=== PATIENT | male | born 1965 | race Caucasian/White ===

== ENCOUNTER 2020-02-25 11:44 | Day surgery (SDC) | payer OTHER, SELFPAY ==
[2020-02-19 14:24] VITALS: BMI 27.3
--- NOTE | 2020-02-20 09:13 | HO.ANESPROP2 ---
HPI - Anesthesia Eval Consult details Narrative: 54yo M for Colonoscopy [facility] Past Medical History Medical History Asthma Elevated cholesterol HTN (hypertension) Surgical History Surgical History History of inguinal hernia repair, bilateral History of Problems with Anesthesia: Unobtainable Social History Social History Smoking Status: Current every day smoker Packs Per Day: 0.75 Cigarettes Per Day: 15.0 Years Smoked: 43 Second Hand Smoke Exposure: No Meds Allergies Allergy/AdvReac Type Severity Reaction Status Date / Time No Known Allergies Allergy Verified 02/19/20 14:27 Home Medications Medication Instructions Recorded Confirmed Type albuterol sulfate 2 puff PO Q4H PRN 02/19/20 02/19/20 History aspirin [Aspirin Low Dose] 81 mg PO DAILY 02/19/20 02/19/20 History cyclobenzaprine 1 tab PO BID 02/19/20 02/19/20 History ergocalciferol (vitamin D2) 1,250 mcg PO QWEEK 02/19/20 02/19/20 History lisinopril 1 tab PO DAILY 02/19/20 02/19/20 History tramadol 50 mg PO Q6H PRN 02/19/20 02/19/20 History Exam Exam Date and Time: February 20, 2020 0913 Height,Weight and Vital Signs: Height 5 ft 8 in Weight 81.647 kg BMI: 27
--- NOTE | 2020-02-25 12:29 | HO.ANESPROP2 ---
[facility] Past Medical History Medical History Asthma Elevated cholesterol HTN (hypertension) Surgical History Surgical History History of inguinal hernia repair, bilateral Social History Social History Smoking Status: Current every day smoker Packs Per Day: 0.75 Cigarettes Per Day: 15.0 Years Smoked: 43 Smoked in Last 30 Days: Yes Patient Interested in Nicotine Replacement: No Patient Given Instructions on How to Stop Smoking: No Second Hand Smoke Exposure: No Use of substances other than those prescribed or required for medical reasons: No Have you been hit, kicked, punched, or otherwise hurt by someone within the past year? If so, by whom?: No Advance Directives: No Advance Directives Information Provided: No Meds Allergies Allergy/AdvReac Type Severity Reaction Status Date / Time No Known Allergies Allergy Verified 02/19/20 14:27 Home Medications Medication Instructions Recorded Confirmed Type albuterol sulfate 2 puff PO Q4H PRN 02/19/20 02/19/20 History aspirin [Aspirin Low Dose] 81 mg PO DAILY 02/19/20 02/19/20 History cyclobenzaprine 1 tab PO BID 02/19/20 02/19/20 History ergocalciferol (vitamin D2) 1,250 mcg PO QWEEK 02/19/20 02/19/20 History lisinopril 1 tab PO DAILY 02/19/20 02/19/20 History tramadol 50 mg PO Q6H PRN 02/19/20 02/19/20 History Exam Exam Date and Time: February 25, 2020 1229 Height,Weight and Vital Signs: Height 5 ft 8 in Weight 81.647 kg Airway Mallampati Class: II TM Dist: >3cm Neck ROM: Full Heart: RRR Lungs: CTA BL
[2020-02-25 12:31] VITALS: BP 179/97; PULSE 113; RESP 16; TEMP 36.5; O2SAT 99
--- NOTE | 2020-02-25 12:36 | P.CONAN_ITS ---
[facility] Past Medical History Medical History Asthma Elevated cholesterol HTN (hypertension) Surgical History Surgical History History of inguinal hernia repair, bilateral Social History Social History Smoking Status: Current every day smoker Packs Per Day: 0.75 Cigarettes Per Day: 15.0 Years Smoked: 43 Smoked in Last 30 Days: Yes Patient Interested in Nicotine Replacement: No Patient Given Instructions on How to Stop Smoking: No Second Hand Smoke Exposure: No Use of substances other than those prescribed or required for medical reasons: No Have you been hit, kicked, punched, or otherwise hurt by someone within the past year? If so, by whom?: No Advance Directives: No Advance Directives Information Provided: No Meds Allergies Allergy/AdvReac Type Severity Reaction Status Date / Time No Known Allergies Allergy Verified 02/19/20 14:27 Home Medications Medication Instructions Recorded Confirmed Type albuterol sulfate 2 puff PO Q4H PRN 02/19/20 02/19/20 History aspirin [Aspirin Low Dose] 81 mg PO DAILY 02/19/20 02/19/20 History cyclobenzaprine 1 tab PO BID 02/19/20 02/19/20 History ergocalciferol (vitamin D2) 1,250 mcg PO QWEEK 02/19/20 02/19/20 History lisinopril 1 tab PO DAILY 02/19/20 02/19/20 History tramadol 50 mg PO Q6H PRN 02/19/20 02/19/20 History Exam Exam Date and Time: February 25, 2020 1236 Height,Weight and Vital Signs: Height 5 ft 8 in Weight 81.647 kg Last Vital Signs Temp 97.7 F 02/25/20 12:31 Pulse 113 H 02/25/20 12:31 Resp 16 02/25/20 12:31 BP 179/97 H 02/25/20 12:31 Pulse Ox 99 02/25/20 12:31 Assessment and Plan Final Anesthetic Review ASA Class: II Final Preanesthetic Review: No Changes in Pt Med Stat, Meds/Allgs Chart Reviewed, Consent Obtained/Reviewed and Anes Risks/Benef Reviewed Patient Risk: Low Procedure Risk: Low Assessment/Block/Sedation in SS: Assess/Block/Sedation-SS Anesthetic Plan Anesthetic Plan: MAC: Disposition: Standard PACU
--- NOTE | 2020-02-25 12:38 | MHC.SHP ---
Pre-Procedural Eval Section B Chief Complaint: screening Details of Present Illness: colon screen Relevant Family History (Specify if Yes): No Relevant Social History: Tobacco Use Present Medications: see Short Stay Collaborative assessment Medical History: Significant History (asthma, HTN, myalgia, HTN) History of Previous Operations: Relevant previous surgery/procedure and date(s) (hernia repair) Allergies: Allergies Allergy/AdvReac Type Severity Reaction Status Date / Time No Known Allergies Allergy Verified 02/19/20 14:27 Review of Systems Sugical H&P ROS: Negative: Constitution, Cardiovascular, Respiratory, Neurological, Psychiatric, Hem-Onc, Allergic/Immunologic, Gastrointestinal, Genitourinary, Musculoskeletal, Integumentary, Endocrine and Eyes/Ears/Nose/Throat Exam Surgical H&P Exam: Normal: HEENT, Normal: Heart, Normal: Lungs, Normal: Extremities, Normal: Abdomen, Normal: Skin and Normal: Neurological Plan Diagnosis/Plan: Unchanged Patient has been examined and remains a candidate for the planned procedure
--- NOTE | 2020-02-25 12:40 | PM.OP ---
Brief Operative Note Date of procedure: 02/25/20 Pre-op diagnosis: colon screen Post-op diagnosis: same Procedure: Operative Information Procedure Description: Colonoscopy COLONOSCOPY Instrument: Olympus variable stiffness pediatric scope 190L Colonoscopy Monitoring: Vital signs and clinical assessment, continuous EKG monitoring, Pulse oximetry, Carbon Dioxide monitoring and blood pressure monitoring were done throughout the procedure. Colon withdrawal time was 15 minutes. Procedure: The patient was placed in the left lateral decubitis position and pre-procedure medications were administered. After a digital rectal examination of the ano-rectum, the video colonoscope was inserted into the rectum and advanced through the colon to the cecum/TI. The colonoscope was slowly withdrawn in a retrograde panoramic fashion and the colon mucosa was carefully examined including a retroflexed view of the rectum. Findings and interventions are described below. Procedure Difficulty: Findings: Terminal Ileum-normal Cecum:normal Ascending Colon: normal Transverse Colon -normal, 7-9 mm sessile polyp removed with biopsy forceps Descending Colon:normal, 7-9 mm sessile polyp removed with biopsy forceps Sigmoid Colon: normal, 7-9 mm sessile polyp removed with biopsy forceps, several diverticula noted Rectum: Retroflexion with moderate sized internal hemorrhoids, grade 1, some inflammation and granular tissue noted, bx taken Anorectum - normal Colon preparation: [place] Bowel Preparation Scale Right colon; 1 Transverse colon: 2 Left colon; 3 (0 = Unprepared colon segment with mucosa not seen due to solid stool that cannot be cleared. 1 = Portion of mucosa of the colon segment seen, but other areas of the colon segment not well seen due to staining, residual stool and/or opaque liquid. 2 = Minor amount of residual staining, small fragments of stool and/or opaque liquid, but mucosa of colon segment seen well. 3 = Entire mucosa of colon segment seen well with no residual staining, small fragments of stool or opaque liquid) Impression and Post Procedure Diagnosis: diverticulosis internal hemerrhoids polyps Plan: High fiber diet leaflet Avoid straining at stool, epsom salts and sitz bath, anusol supps or cream prn Repeat Colonoscopy in 2 years due to prep or earlier if clinically indicated, review colon prep details next time Above findings were reviewed with the patient and relevant handouts were provided if indicated. Surgeon: Martha Ann MD Anesthesia: MAC Condition: stable Disposition: same day
[2020-02-25] MEDS: Lactated Ringers 1,000 ML 100 ML IVCONT (13:03)
[2020-02-25 13:40] VITALS: BP 110/69; PULSE 91; RESP 16; TEMP 36.4; O2SAT 96
[2020-02-25 13:55] VITALS: BP 013/69; PULSE 81; RESP 16; O2SAT 95
[2020-02-25 14:10] VITALS: BP 123/79; PULSE 77; RESP 16; O2SAT 98
--- NOTE | 2020-02-25 14:55 | HO.POSTANES ---
Post Anesthesia Evaluation Post Anesthesia Evaluation Vital Signs: Vital Signs Temp Pulse Resp BP Pulse Ox 02/25/20 14:10 77 16 123/79 98 02/25/20 13:55 81 16 013/69 95 02/25/20 13:40 97.5 F 91 16 110/69 96 02/25/20 12:31 97.7 F 113 H 16 179/97 H 99 Anesthesia: Monitored Mental Status: Awake Pain Control: Satisfactory Nausea/Vomiting: None Hydration: Adequate Anesthesia-Related Issues: No Anes. Related Issues
--- NOTE | 2020-02-26 08:26 | PC.NURSE ---
Pt called on 02-26-2020 at 0830 for post op call. Pt reports pain in groin that has not subsided since procedure . Pt referred to
== END 2020-02-25 14:41 | disposition home or self-care (01) ==
PROVIDERS: PCP Physician Assistant; Visit Provider Internal Medicine Gastroenterology
PROC: 0DJD8ZZ Inspection of Lower Intestinal Tract, Via Natural or Artificial Opening Endoscopic (ICD-10-PCS; CPT 45378; principal; 2020-02-25 10:50)
DX: Z12.11 Encounter for screening for malignant neoplasm of colon (principal); D12.3 Benign neoplasm of transverse colon; D12.4 Benign neoplasm of descending colon; D12.5 Benign neoplasm of sigmoid colon; K57.30 Diverticulosis of large intestine without perforation or abscess without bleeding; K64.0 First degree hemorrhoids; I10 Essential (primary) hypertension; J45.909 Unspecified asthma, uncomplicated; M79.10 Myalgia, unspecified site; E78.00 Pure hypercholesterolemia, unspecified; E55.9 Vitamin D deficiency, unspecified; R97.20 Elevated prostate specific antigen [PSA]; F17.210 Nicotine dependence, cigarettes, uncomplicated; Z79.82 Long term (current) use of aspirin; Z79.899 Other long term (current) drug therapy
CPT/HCPCS: 45380; 88305

== ENCOUNTER 2020-03-02 17:47 | Outpatient (REF) | payer OTHER, SELFPAY ==
[2020-03-02 18:29] LABS: Glucose Urine UA NEG (NEG); Leukocyte Esterase Urine NEG (NEG); Nitrite Urine NEG (NEG); Specific Gravity - Urine 1.025 (1.005-1.025); Urine Blood NEG (NEG); Urine Ketones NEG (NEG); Urine Protein NEG (NEG-TRACE)
[2020-03-02 18:31] LABS: Appearance Urine CLEAR; Color Urine YELLOW
[2020-03-02 20:31] LABS: Prostate Specific Antigen 4.61 ng/mL (<0.05-4.0)
== END 2020-03-02 17:48 | disposition home or self-care (01) ==
LOC: HO.LAB 17:47
PROVIDERS: PCP Physician Assistant; Visit Provider Internal Medicine Gastroenterology
DX: R30.0 Dysuria (principal)
CPT/HCPCS: 81003; 84153; 87086; 87491; 87591

== ENCOUNTER → 2020-03-05 08:52 | Outpatient (BNVA) | payer OTHER, SELFPAY | PROVIDERS: PCP Internal Medicine; Referring Provider Internal Medicine; Visit Provider Internal Medicine Gastroenterology | DX: Z76.89 Persons encountering health services in other specified circumstances (principal) ==

== ENCOUNTER → 2020-04-23 09:13 | Outpatient (BNVA) | payer OTHER, SELFPAY | PROVIDERS: PCP Internal Medicine; Referring Provider Internal Medicine; Visit Provider Internal Medicine Gastroenterology | DX: Z76.89 Persons encountering health services in other specified circumstances (principal) ==

== ENCOUNTER → 2020-08-23 08:43 | Outpatient (BNVA) | payer OTHER, SELFPAY | PROVIDERS: PCP Internal Medicine; Visit Provider Internal Medicine Gastroenterology ==

== ENCOUNTER → 2020-11-02 13:01 | Outpatient (BNVA) | payer OTHER, SELFPAY | PROVIDERS: PCP Internal Medicine; Visit Provider Urology ==

== ENCOUNTER 2020-12-01 16:10 | Outpatient (REF) | payer OTHER, SELFPAY ==
--- NOTE | ~2020-12-01 | US_ITS ---
EXAMINATION: US EXTREMITY NONVASCULAR CLINICAL INFORMATION: Localized swelling, mass, lump. Medial knee palpable area following repetitive trauma. COMPARISON: None TECHNIQUE: Mora-scale, Doppler, and cine images were obtained in the region of the patient's findings. FINDINGS: Within the subcutaneous tissues overlying the medial knee there is a slightly lobulated, heterogeneous area without increased Doppler detectable vascular flow. Given the reported history of prior repetitive trauma, findings could indicate an evolving hematoma. No additional abnormal soft tissue mass or fluid collection. US/US extremity nonvascular kenny IMPRESSION: Heterogeneous subcutaneous fluid collection overlying the medial knee without inflammatory change. Given the history of repetitive trauma, findings could indicate an evolving hematoma. Alternatively, findings could indicate a prominent varicosity in the appropriate clinical setting.
== END 2020-12-01 16:11 | disposition home or self-care (01) ==
LOC: HO.US 16:10
PROVIDERS: Visit Provider Nurse Practitioner Family
DX: R22.40 Localized swelling, mass and lump, unspecified lower limb (principal)
CPT/HCPCS: 76882

== ENCOUNTER → 2020-12-17 16:28 | Outpatient (BNVA) | payer OTHER, SELFPAY | PROVIDERS: PCP Internal Medicine; Visit Provider Urology ==

== ENCOUNTER 2020-12-20 16:20 | Outpatient (REF) | payer OTHER, SELFPAY ==
--- NOTE | ~2020-12-20 | XR_ITS ---
EXAMINATION: XR HIP, RIGHT CLINICAL INFORMATION: Right hip trochanteric bursitis. COMPARISON: Bilateral hips and AP pelvis 01/20/2020. TECHNIQUE: Two views of the right hip. FINDINGS: The right hip joint space is maintained. No bony erosive changes, acute fracture or dislocation seen. There is a small calcification superior to the greater trochanter likely trochanteric bursitis. The calcification has slightly increased in size since 01/20/2020. The soft tissues are normal. XR/XR hip RT min 2V IMPRESSION: Right hip greater trochanteric bursitis. No acute fracture or dislocation seen.
== END 2020-12-20 16:21 | disposition home or self-care (01) ==
LOC: HO.XRAY 16:20
PROVIDERS: PCP Internal Medicine; Visit Provider Internal Medicine
DX: M70.61 Trochanteric bursitis, right hip (principal)
CPT/HCPCS: 73502

== ENCOUNTER 2021-05-26 08:11 | Outpatient (REF) | payer OTHER, SELFPAY ==
[2021-05-26 11:27] LABS: Binax Internal Control QC Valid; Binax Now Covid-19 Ag Negative (Negative)
== END 2021-05-26 08:12 | disposition home or self-care (01) ==
LOC: HO.HMGCLDS 08:11
PROVIDERS: Visit Provider Internal Medicine
DX: Z20.822 Contact with and (suspected) exposure to COVID-19 (principal)
CPT/HCPCS: 36415; C9803

== ENCOUNTER → 2021-06-24 13:16 | Outpatient (BNVA) | payer OTHER, SELFPAY | PROVIDERS: PCP Internal Medicine; Visit Provider Urology ==

== ENCOUNTER 2021-08-05 09:17 | Outpatient (AMB) | payer OTHER, SELFPAY ==
--- NOTE | 2021-08-05 09:31 | MHC.OFFVIS ---
Intake Intake Visit Reasons: 6 week follow up PVR Intake Note: Patient is present for pvr follow up Experimental Physicist Required: No Accompanied by: Self / Same As Patient Allergies tamsulosin Allergy (Verified 05/17/23 11:02) Rash HPI HPI Comments History of Present Illness Details Garrison is a pleasant male. He is a patient of Dr. Elaine. He is seen for the following urologic issues. - prostatitis - LUTS PVR improved Continue alfuzosin Prostatitis Prior colonoscopy which appeared to trigger significant pelvic symptoms November 2020 Primarily with frequency and urge Pelvic discomfort On initial exam has boggy prostate consistent with prostatitis Treatment with combination therapy PFSH Medical History Asthma Bleeding hemorrhoids Dyspnea on exertion Elevated cholesterol History of diverticulitis HTN (hypertension) Impaired glucose tolerance Nicotine dependence, cigarettes, uncomplicated Tubular adenoma of colon (~2019) Surgical History History of colonoscopy History of inguinal hernia repair, bilateral History of prostate biopsy Family History (Updated 05/17/23 @ 12:03 by Kandis Elaine MD) Father No problems noted. Mother History of high blood pressure Hx of diabetes mellitus Diabetes Child No Financial Resp Substance use disorder Maternal Grandfather Heart attack Maternal Grandmother Breast cancer in situ Social History (Updated 05/17/23 @ 12:03 by Kandis Elaine MD) Housing: House Are you a primary health care / medical job titles to a significant other at home: No Do you presently have visiting nurse or other home services: No Alcohol intake: never Patient Tobacco Use Status: Current everyday Tobacco user Tobacco use type: Cigarette Cigarettes Per Day: 15 Years Smoked: 40+, 1/3 pack (04/2023) e-Cigarette/Vaping Use: Never Used Second Hand Smoke Exposure: No service: No Current occupational status: employed Cognitive needs: No Hearing needs: No Vision needs: No Review of Systems Const Denies chills and Denies fever(s) Card Reports no additional complaints and Denies syncope Resp Denies cough GI Denies abdominal pain and Denies heartburn Reports as per HPI and Denies change in libido Neuro Denies syncope Psych Denies change in libido Endo Denies change in libido Physical Exam Const General: cooperative, healthy appearing, comfortable and no acute distress Orientation/consciousness: patient oriented x3 HENMT Face and sinus: Yes normal facial exam Mouth: moist mucous membranes Neck Neck: Yes normal visual inspection, Yes full ROM and Yes trachea midline Chest Chest palpation & inspection: normal inspection of the chest Resp Effort & Inspection: normal respiratory effort, able to speak in complete sentences and no respiratory distress GI Inspection: Yes normal to inspection Back/Spine/Pelvis Cervical Spine: normal cervical lordosis Thoracic/Lumbar Spine: thoracic and lumbar spine normal to inspection Skin General skin exam: no rashes or lesions noted Neuro General: patient oriented x3, gait normal, tone normal and moves all extremities Extrem General: Yes normal to inspection and Yes capillary refill normal Office Procedures Post Void Residual Post Residual Void Post Void Residual (PVR): 300 [id number] Void Residual by ultrasound Results AMB Urinalysis, Automated UA Leukoctes 15 Deisy/uL Last Edit by Seb Adorno on 08/05/21 10:15 UA Nitrite Negative Last Edit by Seb Adorno on 08/05/21 10:15 UA Urobilinogen 0.2 mg/dL Last Edit by Seb Adorno on 08/05/21 10:15 UA Protein 0 mg/dL Last Edit by Seb Adorno on 08/05/21 10:15 UA pH 6.0 Last Edit by Seb Adorno on 08/05/21 10:15 UA Blood 0 Robert/uL Last Edit by Seb Adorno on 08/05/21 10:15 UA Specific [place] 1.010 Last Edit by Seb Adorno on 08/05/21 10:15 UA Ketone Negative Last Edit by Seb Adorno on 08/05/21 10:15 UA Bilirubin 0 mg/dL Last Edit by Seb Adorno on 08/05/21 10:15 UA Glucose 250 mg/dL Last Edit by Seb Adorno on 08/05/21 10:15 Results Reviewed Results Reviewed: Laboratory Last Values Urine pH (Auto) 6.0 08/05/21 10:10 Specific [place] (Auto) 1.010 08/05/21 10:10 Urine Protein (Auto) 0 mg/dL 08/05/21 10:10 Glucose (UA)(Auto) 250 mg/dL 08/05/21 10:10 Urine Ketones (Auto) Negative 08/05/21 10:10 Urine Blood (Auto) 0 Robert/uL 08/05/21 10:10 Urine Nitrite (Auto) Negative 08/05/21 10:10 Urine Bilirubin (Auto) 0 mg/dL 08/05/21 10:10 Urine Urobilinogen (Auto) 0.2 mg/dL 08/05/21 10:10 Leukocyte Esterase (Auto) 15 Deisy/uL 08/05/21 10:10 Assessment & Plan Assessment & Plan (1) Bladder outlet obstruction: Code(s): N32.0 - Bladder-neck obstruction (2) Prostatitis: Comment: May 2022transrectal ultrasound-guided prostate biopsy Dr. Boo-NORMAL Code(s): N41.9 - Inflammatory disease of prostate, unspecified Plan Six-month follow-up Orders: Orders AMB Post Void Residual by ultrasound 08/05/21 N32.0 - Bladder-neck obstruction AMB Urinalysis Automated 08/05/21 Z13.9 - Encounter for screening, unspecified Medications: New finasteride 5 mg PO DAILY 90 tabs 1RF 90 days N32.0 - Bladder-neck obstruction, N40.1 - Benign prostatic hyperplasia with lower urinary tract symptoms, N13.8 - Other obstructive and reflux uropathy, R33.9 - Retention of urine, unspecified Discontinued alfuzosin ER Take before bedtime Discontinued Reason: Doctor's Order 10 mg PO .nightly 30 days 30 tabs 1RF N32.0 - Bladder-neck obstruction, N40.1 - Benign prostatic hyperplasia with lower urinary tract symptoms, R33.9 - Retention of urine, unspecified, R35.1 - Nocturia Patient Instructions: Imaging studies, laboratory and physical exam results were discussed and reviewed in detail. No major barriers to patient understanding were identified. An opportunity to ask questions regarding the treatment plan was provided. All questions were answered. The patient expressed understanding and agreement with the above treatment plan. The patient is aware they should contact our office by phone for worsening of their current condition or the appearance of new urologic symptoms. Compliance is encouraged with any medications and followup testing that is ordered. It is a privilege to participate in the urologic care of your patient. If you have any questions or concerns regarding treatment for the above conditions, or other urologic issues, please do not hesitate to contact me. The office telephone contact is [phone]. This note is constructed using voice recognition software. While every effort has been made to ensure accuracy box order person errors may have been included. Yours sincerely, Dr Wellington Boo MD, [facility] - Urology Providers of Expert, Compassionate Care for the Genitourinary System Coding Level of Care Code Est Pt Level 3 (70888) Diagnoses Bladder outlet obstruction N32.0 Prostatitis N41.9 CPT Codes Post Residual Void - PVR CPT Code: 43263-[id number] Void Residual by ultrasound ([id number])
== END 2021-08-05 10:36 | disposition home or self-care (01) ==
LOC: HO.HUSH 09:17
PROVIDERS: PCP Internal Medicine; Visit Provider Urology
DX: N32.0 Bladder-neck obstruction (principal); N41.9 Inflammatory disease of prostate, unspecified
CPT/HCPCS: 99499

== ENCOUNTER → 2021-08-05 09:17 | Outpatient (BNVA) | payer OTHER, SELFPAY | PROVIDERS: PCP Internal Medicine; Visit Provider Urology | DX: Z13.89 Encounter for screening for other disorder (principal) | CPT/HCPCS: 51798 ==

== ENCOUNTER → 2021-10-05 12:30 | Outpatient (BNVA) | payer OTHER, SELFPAY | PROVIDERS: PCP Internal Medicine; Visit Provider Urology | DX: N32.0 Bladder-neck obstruction (principal) ==

== ENCOUNTER → 2022-03-28 07:44 | Outpatient (REF) | payer OTHER, SELFPAY ==
--- NOTE | ~2022-03-28 | XR_ITS ---
EXAMINATION: XR CHEST CLINICAL INFORMATION: Chest pain COMPARISON: Previous chest x-ray most recent July 2015 TECHNIQUE: 2 views of the chest were obtained. FINDINGS: No significant abnormality is noted involving the heart, lungs, mediastinum, bony thorax or soft tissues. XR/XR chest 2V IMPRESSION: Unremarkable examination.
--- NOTE | 2022-03-28 07:46 | CA_ITS ---
Acquisition Time: 2022-03-28 08:53:37 Total Exercise Time: 00:07:00 Test Indications: Chest Pain Medications: Protocol: JASON Max HR: 141 BPM 86% of Pred: 163 BPM Max BP: 196/110 mmHG Max Work Load: 8.5 METS Exercise stress test with exercise 7 min of Jason protocol, achieving 86% MPHR, 8.5 METs, with 3/10 left upper chest tightness, with rare isolated PVC, with BP 144/90 which adelita to 196/110 with exercise, without EKG changes meeting criteria for ischemia. In recovery his chest tightness resolved and BP improved to near baseline. ( he has not taken his am antihypertensive agent yet today). Test reviewed with Dr Rosario. Message sent to PCP with results and recommendation for stress echo to further evaluate his chest discomfort. Referred By: Kandis Elaine Overread By: PAPO MORELOS
== END ==
LOC: HO.CARD 07:44
PROVIDERS: PCP Internal Medicine; Visit Provider Internal Medicine
DX: R07.9 Chest pain, unspecified (principal)
CPT/HCPCS: 71046; 93017

== ENCOUNTER → 2022-04-04 10:57 | Outpatient (REF) | payer OTHER, SELFPAY ==
--- NOTE | 2022-04-04 11:00 | CA_ITS ---
Acquisition Time: 2022-04-04 11:10:03 Total Exercise Time: 00:07:39 Test Indications: Abnormal Treadmill Test Medications: SEE CHART Protocol: KATY Max HR: 166 BPM 101% of Pred: 163 BPM Max BP: 170/078 mmHG Max Work Load: 9.5 METS Exercise stress test with exercise 7 min 39 sec of Katy protocol, achieving 93% MPHR, 9.1 METs with report of mild mid upper chest tightness and left hip discomfort, with isolated PACs, and a short run of ventricular bigeminy in recovery, with normotensive response to exercise, without EKG changes meeting criteria for ischemia. Echo images obtained by tech at rest and immediately post peak exercise, Definity contrast used. In recovery his chest tightness resolved. Test reviewed with Dr Spain Referred By: Kandis Elaine Overread By: PAPO MORELOS
== END ==
LOC: HO.CARD 10:57
PROVIDERS: PCP Internal Medicine; Visit Provider Internal Medicine
DX: R07.9 Chest pain, unspecified (principal)
CPT/HCPCS: 93350; Q9957

== ENCOUNTER 2022-04-10 15:48 | Outpatient (REF) | payer OTHER, SELFPAY ==
--- NOTE | 2022-04-10 17:16 | PFT_ITS ---
INDICATION: Asthma. SPIROMETRY: FEV1 to FVC 81% with an FEV1 of 3.43 L, which is 99% predicted, an FVC of 4.24 L, which is 94% predicted. No significant response to bronchodilators noted. Maximum voluntary ventilation 104% predicted. LUNG VOLUMES: Total lung capacity 105% predicted with residual volume 127% predicted. DIFFUSION CAPACITY: DLCO 81% predicted. COMPARISONS: None. INTERPRETATION: No obstructive nor restrictive ventilatory defects identified. No significant response to bronchodilators noted. Normal maximum voluntary ventilation. Lung volumes with evidence of significant air trapping, which could be due to some underlying small airways disease. Diffusion capacity is within normal limits. If asthma is in the differential, methacholine challenge may be helpful in assessing for hyper-reactive airways, otherwise clinical correlation warranted. Konrad Robin MD MR/MODL / [id number]
== END 2022-04-10 15:49 | disposition home or self-care (01) ==
LOC: HO.RESP 15:48
PROVIDERS: PCP Internal Medicine; Visit Provider Internal Medicine
DX: J45.909 Unspecified asthma, uncomplicated (principal)
CPT/HCPCS: 94060; 94727; 94729

== ENCOUNTER 2022-04-12 07:31 | Outpatient (REF) | payer OTHER, SELFPAY ==
[2022-04-12 07:41] LABS: MANUAL DIFF FLAG NO
[2022-04-12 07:55] LABS: Basophils Absolute Auto 0.1 X10*3/uL (0.0-0.2); Basophils Percent Auto 1.1 % (0-2); Eosinophils Absolute Auto 0.2 X10*3/uL (0.0-0.4); Eosinophils Percent Auto 2.1 % (0-4); Hematocrit 43.9 % (42.0-52.0); Hemoglobin 14.5 g/dl (14.0-18.0); Imm Gran Abs Auto 0.05 X10*3/uL (0.00-0.03); Imm Gran Pct Auto 0.5 % (0.0-0.4); Lymphocytes Absolute Auto 2.3 X10*3/uL (1.2-4.9); Lymphocytes Percent Auto 24.7 % (20-40); Mean Corpuscular Hemoglobin 30.5 pg (27.0-33.0); Mean Corpuscular Volume 92.2 fL (80.0-98.0); Mean Platelet Volume 8.8 fL (9.4-12.4); Monocytes Absolute Auto 0.8 X10*3/uL (0.1-1.2); Monocytes Percent Auto 8.3 % (2-11); Neutrophils Percent Auto 63.3 % (45-73); Platelet Count 304 X10*3/uL (160-400); Red Blood Count 4.76 X10*6/uL (4.60-5.80); Red Cell Distribution Width 13.2 % (11.0-16.0); White Blood Count 9.4 X10*3/uL (4.8-10.8)
[2022-04-12 08:36] LABS: Estimated Average Glucose 131 mg/dL; Hemoglobin A1c % 6.2 %
[2022-04-12 09:00] LABS: Alanine Aminotransferase 16 U/L (0-40); Albumin Level 4.2 g/dL (3.5-5.0); Alkaline Phosphatase 75 U/L (39-117); Anion Gap 13 (12-20); Aspartate Amino Transferase 13 U/L (5-37); Bilirubin Total 0.3 mg/dL (0.0-1.0); Blood Urea Nitrogen 12 mg/dL (9-16); Carbon Dioxide 26 mmol/L (22-29); Chloride 106 mmol/L (96-108); Cholesterol 153 mg/dL; Estimated Glomerular Filt Rate > 60; Glucose Fasting 126 mg/dL (60-99); HDL Cholesterol 35 mg/dL; LDL Cholesterol Calculated 105 mg/dl; PSA,Total (Free>4and<10) 6.56 ng/mL (0.00-4.00); Prostate Specific Antigen Scr 6.57 ng/mL (<0.05-4.0); Sodium 140 mmol/L (135-145); TSH reflex Free T4 0.59 uIU/mL (0.32-4.0); Triglycerides 69 mg/dL
[2022-04-14 10:31] LABS: Free Prostate Spec Ag 0.5 ng/mL; Percent Free Prostate Spec Ag 9 % (calc) (>25); Prostate Specific Ag Total 5.5 ng/mL (< OR = 4.0)
== END 2022-04-12 07:32 | disposition home or self-care (01) ==
LOC: HO.LAB 07:31
PROVIDERS: PCP Internal Medicine; Visit Provider Internal Medicine
DX: Z12.5 Encounter for screening for malignant neoplasm of prostate (principal); N13.8 Other obstructive and reflux uropathy; N32.0 Bladder-neck obstruction; N40.1 Benign prostatic hyperplasia with lower urinary tract symptoms; R73.02 Impaired glucose tolerance (oral); G25.81 Restless legs syndrome; I10 Essential (primary) hypertension
CPT/HCPCS: 36415; 80053; 80061; 83036; 84153; 84154; 84443; 85025

== ENCOUNTER → 2022-05-17 15:21 | Outpatient (BNVA) | payer OTHER, SELFPAY | PROVIDERS: PCP Internal Medicine; Visit Provider Internal Medicine | DX: R06.02 Shortness of breath (principal) ==

== ENCOUNTER → 2022-05-18 13:08 | Outpatient (BNVA) | payer OTHER, SELFPAY | PROVIDERS: PCP Internal Medicine; Visit Provider Urology | DX: R97.20 Elevated prostate specific antigen [PSA] (principal) ==

== ENCOUNTER 2022-06-19 10:17 | Day surgery (SDC) | payer OTHER, SELFPAY ==
[2022-06-12 16:43] VITALS: BMI 28.8
[2022-06-14 11:58] VITALS: BMI 29.2
--- NOTE | 2022-06-16 09:36 | HO.ANESPROP2 ---
Documented by User: Penny Ward NP 06/16/22 09:43 HPI - Anesthesia Eval Consult details Narrative: 56yo M for Prostate Needle Biopsy PMFSH Active Problems Active Problems: All Active Problems (Updated 05/17/22 @ 16:38 by Sanya Ozuna MD) Smoker (Acute) Dyspnea on exertion (Acute) Chest pain (Acute) Asthma (Acute) Bilateral hip bursitis (Acute) Left hip pain (Acute) Bladder outlet obstruction (Acute) Urinary hesitancy (Acute) Trochanteric bursitis of right hip (Acute) Hematoma of right knee region (Acute) Knee pain (Acute) Localized swelling, mass and lump, lower limb (Acute) Prostatitis (Acute) Impaired glucose tolerance (Acute) Tobacco abuse (Acute) Elevated PSA (Acute) RLS (restless legs syndrome) (Acute) HTN (hypertension) (Acute) Bleeding hemorrhoids (Acute) Tubular adenoma of colon (Acute) Past Medical History Medical History Asthma Dyspnea on exertion Elevated cholesterol History of diverticulitis HTN (hypertension) Impaired glucose tolerance Smoker Tobacco abuse Family History Family History Father No problems noted. Mother History of high blood pressure Hx of diabetes mellitus Diabetes Child No Financial Resp Substance use disorder Surgical History Surgical History History of colonoscopy History of inguinal hernia repair, bilateral History of Problems with Anesthesia: Unobtainable Social History Social History Housing: House Are you a primary care support representative to a significant other at home: No Do you presently have visiting nurse or other home services: No Alcohol intake: never Patient Tobacco Use Status: Current everyday Tobacco user Tobacco use type: Cigarette Cigarette Packs Per Day: 0.75 Cigarettes Per Day: 15 Years Smoked: 40+ e-Cigarette/Vaping Use: Never Used Second Hand Smoke Exposure: No Have you been hit, kicked, punched, or otherwise hurt by someone within the past year? If so, by whom?: No Are you DNR?: No Advance Directives: No Advance Directives Information Provided: Yes Advance Directives on File: No Recently lost weight without trying: No Nutrition Risks: No Nutritional Risk Poor oral hygiene: No service: No Current occupational status: employed Cognitive needs: No Hearing needs: No Vision needs: No Meds Allergies Allergy/AdvReac Type Severity Reaction Status Date / Time tamsulosin Allergy Rash Verified 06/19/22 10:42 Home Medications Medication Instructions Recorded Confirmed Last Taken Type aspirin 81 mg tablet,delayed 81 mg PO DAILY 02/19/20 06/14/22 06/12/22 08:00 History release (Tyler Low Dose Aspirin) cyclobenzaprine 10 mg tablet 10 mg PO Q8H PRN Back Pain 05/17/22 06/14/22 Unknown History Exam Exam Date and Time: June 16, 2022 0936 Height,Weight and Vital Signs: Height 5 ft 8 in Weight 87.09 kg Pertinent Lab Results Pertinent Lab Results: Laboratory Tests 04/12/22 04/12/22 07:39 07:39 WBC 9.4 Hgb 14.5 Hct 43.9 Plt Count 304 Sodium 140 Potassium 5.0 Chloride 106 Carbon Dioxide 26 BUN 12 Creatinine 0.87 Narrative Narrative: Stress ECHO 03/2022 Findings : ? At rest images are of adequate quality. There is normal LV systolic function without any? wall motion abnormalities. Post exercise images are of borderline quality due to off axis parasternal views. There is good augmentation of overall LV? systolic function with no regional wall motion abnormalities. ? Conclusion : ? Stress echo is negative for ischemia PFT 03/2022 INTERPRETATION:? No obstructive nor restrictive ventilatory defects identified.? No significant response to bronchodilators noted.? Normal maximum voluntary ventilation.? Lung volumes with evidence of significant air trapping, which could be due to some underlying small airways disease.? Diffusion capacity is within normal limits. If asthma is in the differential, methacholine challenge may be helpful in assessing for hyper-reactive airways, otherwise clinical correlation warranted. Assessment and Plan Assessment Anesthesia Assessment: Chart Reviewed Final Anesthetic Review History of Problems with Anesthesia: Unobtainable Documented by User: Deni Rick MD 06/19/22:19 [facility] Past Medical History Medical History Asthma Dyspnea on exertion Elevated cholesterol History of diverticulitis HTN (hypertension) Impaired glucose tolerance Smoker Tobacco abuse Family History Family History Father No problems noted. Mother History of high blood pressure Hx of diabetes mellitus Diabetes Child No Financial Resp Substance use disorder Family history of problems with anesthesia: No Surgical History Surgical History History of colonoscopy History of inguinal hernia repair, bilateral History of Problems with Anesthesia: No Social History Social History Housing: House Are you a primary care support representative to a significant other at home: No Do you presently have visiting nurse or other home services: No Alcohol intake: never Patient Tobacco Use Status: Current everyday Tobacco user Tobacco use type: Cigarette Cigarette Packs Per Day: 0.75 Cigarettes Per Day: 15 Years Smoked: 40+ e-Cigarette/Vaping Use: Never Used Second Hand Smoke Exposure: No Have you been hit, kicked, punched, or otherwise hurt by someone within the past year? If so, by whom?: No Are you DNR?: No Advance Directives: No Advance Directives Information Provided: Yes Advance Directives on File: No Recently lost weight without trying: No Nutrition Risks: No Nutritional Risk Poor oral hygiene: No service: No Current occupational status: employed Cognitive needs: No Hearing needs: No Vision needs: No Meds Allergies Allergy/AdvReac Type Severity Reaction Status Date / Time tamsulosin Allergy Rash Verified 06/19/22 10:42 Home Medications Medication Instructions Recorded Confirmed Last Taken Type aspirin 81 mg tablet,delayed 81 mg PO DAILY 02/19/20 06/14/22 06/12/22 08:00 History release (Tyler Low Dose Aspirin) cyclobenzaprine 10 mg tablet 10 mg PO Q8H PRN Back Pain 05/17/22 06/14/22 Unknown History Exam Airway Mallampati Class: II TM Dist: >3cm Neck ROM: Full Loose/Missing/Broken Teeth: Yes and Upper Heart: ok Lungs: ok Assessment and Plan Assessment Anesthesia Assessment: Anesthesia Plan Discussed and Chart Reviewed Final Anesthetic Review Family History of Problems with Anesthesia: No History of Problems with Anesthesia: No NPO: Yes ASA Class: II Final Preanesthetic Review: No Changes in Pt Med Stat, Meds/Allgs Chart Reviewed, Consent Obtained/Reviewed and Anes Risks/Benef Reviewed Patient Risk: Intermediate Procedure Risk: Low Anesthetic Plan Anesthetic Plan: MAC: and Agree w/ Assess. and Plan Disposition: Standard PACU
[2022-06-19 10:33] VITALS: PULSE 110; RESP 16; TEMP 36.7; O2SAT 97
--- NOTE | 2022-06-19 11:07 | W.PM.OPN ---
Operative Note Operative Note Date of Service: 06/19/22 Narrative: Preoperative diagnosis: Elevated PSA Postoperative diagnosis: Elevated PSA 6.5 Procedure: 1. transrectal ultrasound measurement of prostate 2. transrectal ultrasound-guided pudendal nerve block 3. transrectal ultrasound-guided prostate biopsy 12 core Surgeon: Dr. Wellington Boo Anesthetic: Local Indications for procedure: Elevated PSA Procedure: After informed consent was verified, the patient was brought into the procedure area and lay left-hand side down on the table. Patient identity confirmed. Perioperative antibiotics confirmed. Safety pause time out performed. VALENTINO performed to dilate rectal sphincter Iodine 10cc with Gel was placed per rectum Ultrasound probe was placed per rectum The prostate was measured in 3 dimensions Total volume equals 50 gm No cystic structures were noted Minor calcifications were noted at the surgical margin The prostate was otherwise homogeneous in nature An ultrasound-guided pudendal nerve block was performed using 10 cc of 1% lidocaine. 8 cc was placed at the base and 2 cc of the apex. A 12 core biopsy was performed with 6 cores each side. Two cores were taken at the apex, mid and base. Cores were spaced between lateral and medial. He tolerated the procedure well. Was able to ambulate to bathroom after 5 minutes. Printed instructions regarding antibiotic use and common side effects such as low-grade temperature, potential infection and bleeding were given Pathology: 12 core prostate biopsy.
[2022-06-19 11:21] VITALS: BP 148/82; PULSE 83; RESP 20; TEMP 36.9; O2SAT 95
[2022-06-19 11:36] VITALS: BP 143/90; PULSE 81; RESP 20; O2SAT 96
[2022-06-19 11:51] VITALS: BP 143/87; PULSE 80; RESP 20; TEMP 36.8; O2SAT 97
== END 2022-06-19 12:32 | disposition home or self-care (01) ==
PROVIDERS: PCP Internal Medicine; Visit Provider Urology
PROC: (CPT 55700; principal; 2022-06-19 12:30)
DX: N41.9 Inflammatory disease of prostate, unspecified (principal); R97.20 Elevated prostate specific antigen [PSA]
CPT/HCPCS: 55700; 76942; 88305; J1956; J2250

== ENCOUNTER → 2022-06-27 11:23 | Outpatient (BNVA) | payer OTHER, SELFPAY | PROVIDERS: PCP Internal Medicine; Visit Provider Urology | DX: Z13.89 Encounter for screening for other disorder (principal) ==

== ENCOUNTER 2022-08-04 15:39 | Outpatient (REF) | payer OTHER, SELFPAY ==
--- NOTE | ~2022-08-04 | CT_ITS ---
EXAMINATION: LUNG CANCER SCREENING CT CHEST WITHOUT CONTRAST CLINICAL INFORMATION: Current smoker with 43 pack year history COMPARISON: None TECHNIQUE: Multidetector volumetric CT imaging of the chest was obtained noncontrast using low dose screening CT technique. Axial thin section 0.625 mm reformations in soft tissue and lung windows were obtained. Sagittal and coronal reformations were obtained. Axial MIP images were also created and reviewed. This CT examination was performed using dose optimization techniques as appropriate, variously including the following: *Automated exposure control *Adjustment of mA and/or kV according to patient size (this includes techniques or standardized protocols for targeted exams where dose is matched to indication/reason for exam; i.e. extremities or head) *Use of iterative reconstruction technique TOTAL EXAM DLP: 48 mGy-cm. FINDINGS: PULMONARY NODULES: No suspicious pulmonary nodules. There are a couple 3 mm nodules has shown on the [place] images. LUNGS / PLEURA: Minimal emphysema. Diffuse mild bronchial thickening without bronchiectasis. No pleural effusion or pneumothorax. MEDIASTINUM / TANMAY: Heart normal in size without pericardial effusion. Great vessels normal caliber. No lymphadenopathy. Coronary calcifications present. Imaged thyroid gland unremarkable. CHEST WALL / AXILLA: Unremarkable. UPPER ABDOMEN: Included portions grossly unremarkable allowing for limitations in technique. OSSEOUS STRUCTURES: No acute or suspicious osseous abnormalities. CT/CT lung screening IMPRESSION: * No evidence of pulmonary malignancy. * There are no pulmonary nodules that meet criteria for short interval follow-up at this time. ASSESSMENT: Lung RADS category: 2. Benign appearance or behavior. Nodules with a very low likelihood of becoming a clinically active cancer due to size or lack of growth. Continue annual screening with low-dose CT in 12 months. Probability of malignancy less than 1%. INCIDENTAL FINDINGS (S CATEGORY): None. RECOMMENDATION: Follow up low dose CT chest in 1 year.
== END 2022-08-04 15:40 | disposition home or self-care (01) ==
LOC: HO.CT 15:39
PROVIDERS: Visit Provider Physician Assistant Medical
DX: Z12.2 Encounter for screening for malignant neoplasm of respiratory organs (principal); F17.210 Nicotine dependence, cigarettes, uncomplicated
CPT/HCPCS: 71271; G0296

== ENCOUNTER → 2022-09-12 16:01 | Outpatient (BNVA) | payer OTHER, SELFPAY | PROVIDERS: PCP Internal Medicine; Visit Provider Nurse Practitioner Family | DX: Z13.89 Encounter for screening for other disorder (principal) ==

== ENCOUNTER 2023-05-17 11:00 | Outpatient (AMB) | payer OTHER, SELFPAY ==
[2023-05-17 11:01] VITALS: BP 180/98; PULSE 87; O2SAT 97; BMI 28.9
--- NOTE | 2023-05-17 11:01 | MHC.PC.OV ---
Vital Signs 05/17/23 11:01 05/17/23 11:59 Height 5 ft 8 in Weight 190 lb BMI 28.9 BP 180/98 H 150/90 H Blood Pressure Location Lt brachial Lt brachial Position Sitting Sitting Pulse 87 Pulse Source Pulse Oximeter Pulse Oximetry (%) 97 Oxygen Delivery Method Room Air Intake Visit Reasons: Annual Physical Intake Note: Patient is here today for a physical. [employer] Required: No Allergies tamsulosin Allergy (Verified 05/17/23 11:02) Rash Medication List - Last Reconciled 05/17/23 by Kandis Elaine MD bisacodyl (Dulcolax (bisacodyl)) 10 mg (2 x 5 mg) PO ONCE 1 day ibuprofen 200 mg PO Q6H PRN lisinopril 30 mg PO DAILY polyethylene glycol 3350 (Miralax) 17 grams PO DAILY polyethylene glycol 3350 (Miralax) 238 grams PO ONCE Tobacco use date assessed: 05/17/23 Dental Screening Dental Screen Date: 05/17/23 Did you have a dental visit in the last 12 months?: No Did you have a dental problem in the last 6 months where you did not have access to dental care?: No HPI Annual Physical HPI Details 57-year-old overweight male smoker with hypertension impaired glucose tolerance bilateral hip pain and bladder outlet obstruction coming in for follow-up. Last seen in February 2022. Patient's colonoscopy is due this year. With the smoking patient had a CT scan done revealing 2 benign appearance nodules low likelihood and yearly scanning this was done in July 2022. Patient follows up with urology also for the prostate biopsy done in May 2022 chronic inflammation no prostate cancer trial of the dutasteride. patient also sees pulmonary pulmonary function test is normal. complains of leg cramps. occ dizzy. occ waking sob, leg pain, memory problem PFSH Medical History Asthma Bleeding hemorrhoids Dyspnea on exertion Elevated cholesterol History of diverticulitis HTN (hypertension) Impaired glucose tolerance Nicotine dependence, cigarettes, uncomplicated Tubular adenoma of colon (~2019) Surgical History History of colonoscopy History of inguinal hernia repair, bilateral History of prostate biopsy Family History (Updated 05/17/23 @ 12:03 by Kandis Elaine MD) Father No problems noted. Mother History of high blood pressure Hx of diabetes mellitus Diabetes Child No Financial Resp Substance use disorder Maternal Grandfather Heart attack Maternal Grandmother Breast cancer in situ Social History (Updated 05/17/23 @ 12:03 by Kandis Elaine MD) Housing: House Are you a primary career professional to a significant other at home: No Do you presently have visiting nurse or other home services: No Alcohol intake: never Patient Tobacco Use Status: Current everyday Tobacco user Tobacco use type: Cigarette Cigarettes Per Day: 15 Years Smoked: 40+, 1/3 pack (04/2023) e-Cigarette/Vaping Use: Never Used Second Hand Smoke Exposure: No service: No Current occupational status: employed Cognitive needs: No Hearing needs: No Vision needs: No Questionnaire PHQ-9 Over the last 2 weeks, how often have you been bothered by any of the following problems? 1. Little interest or pleasure in doing things: not at all 2. Feeling down, depressed, or hopeless: not at all 3. Trouble falling or staying asleep, or sleeping too much: not at all 4. Feeling tired or having little energy: not at all 5. Poor appetite or overeating: not at all 6. Feeling bad about yourself - or that you are a failure or have let yourself or your family down: not at all 7. Trouble concentrating on things, such as reading the newspaper or watching television: not at all 8. Moving or speaking so slowly that other people could have noticed. Or the opposite - being so fidgety or restless that you have been moving around a lot more than usual: not at all 9. Thoughts that you would be better off or of hurting yourself in some way: not at all Total score: 0 Depression Screening Interpretation: Negative Depression Screening Done: Yes Source: Developed by Drs. Brett Nixon, Lima Nichols, Rafael Burgess and colleagues, with an educational maryan from [employer]. Thrive Questionnaire Date Thrive assessed: 05/17/23 I am a: Patient What is your living situation today?: I have a steady place to live Within the past 12 months, did the food you bought not last and you didn't have the money to get more?: Never true Within the past 12 months, did you worry whether your food would run out before you got money to buy more?: Never true Do you have trouble paying for medicines?: No Do you have trouble getting transportation to medical appointments?: No Do you have trouble paying your heating and electricity bill?: No Do you have trouble taking care of your child, family member or friend?: No Do you have trouble with day-to-day activities such as bathing, preparing meals, shopping, managing finances, etc.?: No Are you currently unemployed and looking for a job?: No Are you interested in more education?: No AUDIT C Alcohol Use Questionnaire (AUDIT-C) 1. How often do you have a drink containing alcohol?: Never 2. How many drinks containing alcohol do you have on a typical day when you are drinking?: 1 or 2 3. How often do you have six or more drinks on one occasion?: Never Total Score: 0 Score Reviewed/Action Taken: No DELL-7 AMB Questionnaire DELL-7 Date DELL - 7 assessed: 05/17/23 Feeling nervous, anxious, or on edge: 0 = Not at all Not being able to stop or control worryin = Not at all Worrying too much about different things: 0 = Not at all Trouble relaxin = Not at all Being so restless that it is hard to sit still: 0 = Not at all Becoming easily annoyed or irritable: 0 = Not at all Feeling afraid as if something awful might happen: 0 = Not at all Total DELL-7 score (0-4 normal; 5-9 mild; 10-14 moderate; 15-21 severe): 0 Source: Developed by Drs. Brett Nixon, Lima Nichols, Rafael Burgess and colleagues, with an educational maryan from [employer]. Review of Systems Const Denies poor appetite and Denies weakness Eyes Denies no additional complaints ENT Reports Normal hearing present, Denies dizziness, Denies nasal congestion, Denies tinnitus and Denies sore throat Card Denies chest pain, Denies syncope, Denies rapid heart rate and Denies dyspnea Resp Denies cough and Denies dyspnea GI Denies change in stool character, Reports constipation, Denies diarrhea, Denies nausea and Denies vomiting Denies dysuria and Denies urinary frequency Neuro Reports Normal hearing present, Denies confusion, Denies dizziness, Denies syncope and Denies weakness Psych Denies confusion Physical exam (Primary Care) Vital Signs: Last Vital Signs Pulse 87 05/17/23 11:01 BP 150/90 H 05/17/23 11:59 Pulse Ox 97 05/17/23 11:01 Oxygen Delivery Method Room Air 05/17/23 11:01 BMI result Body Mass Index 28.9 Tobacco/Smoking Status: Tobacco use Status Tobacco use date assessed 05/17/23 05/17/23 11:02 Patient Tobacco Use Status Current everyday Tobacco 05/17/23 12:03 Tobacco use type Cigarette 05/17/23 12:03 e-Cigarette/Vaping Use Never Used 05/17/23 12:03 PHQ-9: PHQ-9 Score PHQ-9: Total score 0 05/17/23 11:56 Depression Screening Interpretation: Negative Thrive Assessment: Date of Thrive Assessment Date Thrive assessed 05/17/23 05/17/23 11:02 Const General: No confusion Orientation/consciousness: No confusion HENMT Head: Yes normocephalic Ears: external ears normal and TM's normal bilaterally Face and sinus: Yes normal facial exam Mouth: moist mucous membranes Throat: Yes tonsils normal Eyes Conjunctivae: conjunctivae normal Pupils: Equal, round and reactive pupils present and Pupil accommodation reflex normal Direct Ophthalmoscopy: normal light reflex Neck Neck: No lymphadenopathy Thyroid: Thyroid normal Chest Chest palpation & inspection: normal inspection of the chest Resp Effort & Inspection: normal respiratory effort and no audible wheezes Auscultation: clear to auscultation bilaterally, no crackles, no wheezes and lung sounds not diminished Cardio Rate: regular rate Rhythm: regular rhythm Peripheral pulses: radial pulses present and dorsalis pedis present GI Other: colon test is pending Palpation (GI): no masses Auscultation: normal bowel sounds and normoactive bowel sounds Rectal Exam - Male: Yes deferred Skin General skin exam: no rashes or lesions noted Rashes: no rashes Neuro General: No confusion Cranial nerves: Yes Equal, round and reactive pupils present and Yes Normal hearing present Cognition (Neuro): normal cognition Gait exam (Neuro): Normal gait present Motor exam (neuro): 5/5 motor strength present throughout Deep tendon reflexes (DTR's): Right brachioradialis reflex intensity grade: 2+, Left brachioradialis reflex intensity grade: 2+, Right patellar reflex intensity grade: 2+ and Left patellar reflex intensity grade: 2+ Extrem General: No edema Office Procedures Flu Questionnaire Does the patient have a severe egg allergy?: No Does the patient have severe life threatening allergies?: No Does the patient have a fever or illness today?: No Has the patient ever had Guillain-Hitterdal Syndrome?: No Has the patient ever had any past reaction to a flu shot?: No Immunizations flu vacc [id number] 6mos up(PF) 60 mcg(15 mcgx4)/0.5 mL IM syringe Performing Provider: Kandis Elaine MD Performing Location: [facility] Administered by: Madonna Lee CMA on 05/17/23 12:23 Dose Route Admin Location Dispensed Lot Number Expiration Date NDC Director Compensation 0.5 mL IM Left Deltoid 0.5 mL [id number] 11/18/23 [id number] [employer] VIS Given Date VIS Provided VIS Publication Date 05/17/23 Single Vaccine 20 Eligibility Eligibility Date Funding Source Not VFC Eligible 05/17/23 Private pneumoc 20-fouzia conj-dip cr(PF) 0.5 mL IM syringe Performing Provider: Kandis Elaine MD Performing Location: [facility] Administered by: Madonna Lee CMA on 05/17/23 12:23 Dose Route Admin Location Dispensed Lot Number Expiration Date NDC Director Compensation 0.5 mL IM Right Deltoid 0.5 mL [id number] 06/21/24 4399-9905-04 [employer] VIS Given Date VIS Provided VIS Publication Date 05/17/23 Single Vaccine 21 Eligibility Eligibility Date Funding Source Not VFC Eligible 05/17/23 Private Assessment and Plan Assessment & Plan (1) Annual physical exam: Code(s): Z00.00 - Encounter for general adult medical examination without abnormal findings (2) HTN (hypertension): Code(s): I10 - Essential (primary) hypertension Qualifiers: Hypertension type: essential hypertension Qualified Code(s): I10 - Essential (primary) hypertension Plan: Continue with blood pressure medication. Decrease salt intake and exercise (3) Dyspnea on exertion: Comment: (KIRK not secondary to Asthma or COPD. PFT essentially normal may be due to nonspecific etiology or deconditioning - will keep in mind some degree of CAD dispite normal stress test/echo. Advised against long-acting bronchodilators. Can use ProAir PRN) Code(s): R06.09 - Other forms of dyspnea Plan: Patient has been worked cardiac hicks and pulmonary hicks everything has, normal (4) Nicotine dependence, cigarettes, uncomplicated: Comment: (current smoker, 1ppd x 42yrs, now 1/2ppd, 35pyh) CT scan July 2022 Code(s): F17.210 - Nicotine dependence, cigarettes, uncomplicated Plan: Strongly advised to stop smoking (5) Impaired glucose tolerance: Code(s): R73.02 - Impaired glucose tolerance (oral) Plan: Decrease the amount of carbohydrate intake, pasta, bread, rice and potatoes are all sugar and that is aside from all the sweet stuff, remember that fruits are good but they are Sweet also. (6) Tubular adenoma of colon: Onset Date: ~2019 Comment: (TAs on 2019 scope) Code(s): D12.6 - Benign neoplasm of colon, unspecified Plan: Patient is reminded about colonoscopy (7) Prostatitis: Comment: May 2022transrectal ultrasound-guided prostate biopsy Dr. Boo-NORMAL Code(s): N41.9 - Inflammatory disease of prostate, unspecified Plan: Patient follows up with urology (8) Leg cramps: Code(s): R25.2 - Cramp and spasm Plan: pulse noted bilateral weak but equal. will work up Orders: Orders Hemoglobin A1c Today R73.02 - Impaired glucose tolerance (oral) Lipid Panel Today E78.00 - Pure hypercholesterolemia, unspecified, R73.02 - Impaired glucose tolerance (oral) Thyroid Stimulating Hormone Today R73.02 - Impaired glucose tolerance (oral) Vitamin B12 and Folate Today R73.02 - Impaired glucose tolerance (oral) Prostate Specific Antigen Scr Today R73.02 - Impaired glucose tolerance (oral) Uric Acid Today R73.02 - Impaired glucose tolerance (oral) Influenza [id number] Immunization Today Z23 - Encounter for immunization Pneumococcal 20 Immunization Today Z23 - Encounter for immunization Comprehensive Met. Panel Today R73.02 - Impaired glucose tolerance (oral) Complete Blood Count Auto Diff Today R73.02 - Impaired glucose tolerance (oral) Magnesium Today R73.02 - Impaired glucose tolerance (oral) Free T4 (Free Thyroxine) Today R73.02 - Impaired glucose tolerance (oral) Medications: New ropinirole administer 1-3 hours before bedtime 0.25 mg PO BEDTIME 30 tabs 3RF R25.2 - Cramp and spasm lisinopril-hydrochlorothiazide 20-12.5 mg 1 tab PO BID 60 tabs 4RF I10 - Essential (primary) hypertension Discontinued lisinopril Discontinued Reason: Doctor's Order 30 mg PO DAILY 30 tabs 2RF I10 - Essential (primary) hypertension Coding Level of Care Code Est Pt Prev Care 40-64y([id number]) Diagnoses Annual physical exam Z00.00 Essential hypertension I10 Hypertension type: essential hypertension Dyspnea on exertion R06.09 Nicotine dependence, cigarettes, uncomplicated F17.210 Impaired glucose tolerance R73.02 Tubular adenoma of colon D12.6 Prostatitis N41.9 Leg cramps R25.2
[2023-05-17 11:59] VITALS: BP 150/90
== END 2023-05-17 12:32 | disposition home or self-care (01) ==
PROVIDERS: PCP Internal Medicine; Visit Provider Internal Medicine
DX: Z00.00 Encounter for general adult medical examination without abnormal findings (principal); I10 Essential (primary) hypertension; R06.09 Other forms of dyspnea; Z23 Encounter for immunization; F17.210 Nicotine dependence, cigarettes, uncomplicated; R73.02 Impaired glucose tolerance (oral); D12.6 Benign neoplasm of colon, unspecified; N41.9 Inflammatory disease of prostate, unspecified; R25.2 Cramp and spasm
CPT/HCPCS: 90471; 90472; 90677; 90686; 99396

== ENCOUNTER 2023-08-03 14:39 | Outpatient (AMB) | payer OTHER, SELFPAY ==
[2023-08-03 14:44] VITALS: BP 156/84; PULSE 88; O2SAT 98; BMI 28.7
--- NOTE | 2023-08-03 14:44 | MHC.PC.OV ---
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: Not Required per policy Accompanied by: Self / Same As Patient Allergies tamsulosin Allergy (Verified 08/03/23 14:45) Rash hydrochlorothiazide Adverse Reaction (Intermediate, Unverified 08/03/23 15:02) cramps Medication List - Last Reconciled 08/03/23 by Kandis Elaine MD amlodipine 5 mg PO DAILY bisacodyl (Dulcolax (bisacodyl)) 10 mg (2 x 5 mg) PO ONCE 1 day ibuprofen 200 mg PO Q6H PRN lisinopril 40 mg PO DAILY polyethylene glycol 3350 (Miralax) 17 grams PO DAILY polyethylene glycol 3350 (Miralax) 238 grams PO ONCE ropinirole 0.25 mg PO BEDTIME Tobacco use date assessed: 08/03/23 Dental Screening Dental Screen Date: 08/03/23 Did you have a dental visit in the last 12 months?: Yes Did you have a dental problem in the last 6 months where you did not have access to dental care?: No Was dental information given to patient?: Patient has dentist HPI leg cramps rescheduled from 07/26/23 HPI Details 57-year-old overweight male smoker with hypertension impaired glucose tolerance coming in for follow-up. Last seen in April 2023 for physical exam. Patient was reminded about colonoscopy. [facility] Medical History Asthma Bleeding hemorrhoids Dyspnea on exertion Elevated cholesterol History of diverticulitis HTN (hypertension) Impaired glucose tolerance Nicotine dependence, cigarettes, uncomplicated Tubular adenoma of colon (~2019) Surgical History History of prostate biopsy History of colonoscopy History of inguinal hernia repair, bilateral Family History Father No problems noted. Mother History of high blood pressure Hx of diabetes mellitus Diabetes Child No Financial Resp Substance use disorder Maternal Grandfather Heart attack Maternal Grandmother Breast cancer in situ Social History (Updated 05/17/23 @ 12:03 by Kandis Elaine MD) Housing: House Are you a primary rn progressive care to a significant other at home: No Do you presently have visiting nurse or other home services: No Alcohol intake: never Patient Tobacco Use Status: Current everyday Tobacco user Tobacco use type: Cigarette Cigarettes Per Day: 15 Years Smoked: 40+, 1/3 pack (04/2023) e-Cigarette/Vaping Use: Never Used Second Hand Smoke Exposure: No service: No Current occupational status: employed Cognitive needs: No Hearing needs: No Vision needs: No Questionnaire PHQ-9 Over the last 2 weeks, how often have you been bothered by any of the following problems? 1. Little interest or pleasure in doing things: not at all 2. Feeling down, depressed, or hopeless: not at all 3. Trouble falling or staying asleep, or sleeping too much: not at all 4. Feeling tired or having little energy: not at all 5. Poor appetite or overeating: not at all 6. Feeling bad about yourself - or that you are a failure or have let yourself or your family down: not at all 7. Trouble concentrating on things, such as reading the newspaper or watching television: not at all 8. Moving or speaking so slowly that other people could have noticed. Or the opposite - being so fidgety or restless that you have been moving around a lot more than usual: not at all 9. Thoughts that you would be better off or of hurting yourself in some way: not at all Total score: 0 Depression Screening Interpretation: Negative Depression Screening Done: Yes Source: Developed by Drs. Brett Nixon, Lima Nichols, Rafael Burgess and colleagues, with an educational maryan from [employer]. Thrive Questionnaire Date Thrive assessed: 08/03/23 I am a: Patient What is your living situation today?: I have a steady place to live Within the past 12 months, did the food you bought not last and you didn't have the money to get more?: Never true Within the past 12 months, did you worry whether your food would run out before you got money to buy more?: Never true Do you have trouble paying for medicines?: No Do you have trouble getting transportation to medical appointments?: No Do you have trouble paying your heating and electricity bill?: No Do you have trouble taking care of your child, family member or friend?: No Do you have trouble with day-to-day activities such as bathing, preparing meals, shopping, managing finances, etc.?: No Are you currently unemployed and looking for a job?: No Are you interested in more education?: No Please select the resources that you would like help with: None THRIVE Score: 0 AUDIT C Alcohol Use Questionnaire (AUDIT-C) 1. How often do you have a drink containing alcohol?: Never 2. How many drinks containing alcohol do you have on a typical day when you are drinking?: 1 or 2 3. How often do you have six or more drinks on one occasion?: Never Total Score: 0 Score Reviewed/Action Taken: No DELL-7 AMB Questionnaire DELL-7 Date DELL - 7 assessed: 08/03/23 Feeling nervous, anxious, or on edge: 0 = Not at all Not being able to stop or control worryin = Not at all Worrying too much about different things: 0 = Not at all Trouble relaxin = Not at all Being so restless that it is hard to sit still: 0 = Not at all Becoming easily annoyed or irritable: 0 = Not at all Feeling afraid as if something awful might happen: 0 = Not at all Total DELL-7 score (0-4 normal; 5-9 mild; 10-14 moderate; 15-21 severe): 0 Source: Developed by Drs. Brett Nixon, Lima Nichols, Rafael Burgess and colleagues, with an educational maryan from [employer]. Physical exam (Primary Care) Vital Signs: Last Vital Signs Pulse 88 08/03/23 14:44 BP 156/84 H 08/03/23 14:44 Pulse Ox 98 08/03/23 14:44 Oxygen Delivery Method Room Air 08/03/23 14:44 BMI result Body Mass Index 28.7 Tobacco/Smoking Status: Tobacco use Status Tobacco use date assessed 08/03/23 08/03/23 14:46 Patient Tobacco Use Status Current everyday Tobacco 08/03/23 14:46 Tobacco use type Cigarette 08/03/23 14:46 e-Cigarette/Vaping Use Never Used 08/03/23 14:46 PHQ-9: PHQ-9 Score PHQ-9: Total score 0 08/03/23 14:55 Depression Screening Interpretation: Negative Thrive Assessment: Date of Thrive Assessment Date Thrive assessed 08/03/23 08/03/23 14:46 Const General: alert; No acute distress Eyes Conjunctivae: conjunctivae normal Resp Auscultation: clear to auscultation bilaterally Cardio Rate: regular rate Rhythm: regular rhythm GI Inspection: Yes normal to inspection Extrem General: Yes normal to inspection and No edema Assessment and Plan Assessment & Plan (1) Impaired glucose tolerance: Code(s): R73.02 - Impaired glucose tolerance (oral) Plan: Decrease the amount of carbohydrate intake, pasta, bread, rice and potatoes are all sugar and that is aside from all the sweet stuff, remember that fruits are good but they are Sweet also. Reminded about blood work (2) Elevated PSA: Code(s): R97.20 - Elevated prostate specific antigen [PSA] Plan: Patient follows up with urology (3) HTN (hypertension): Code(s): I10 - Essential (primary) hypertension Qualifiers: Hypertension type: essential hypertension Qualified Code(s): I10 - Essential (primary) hypertension Plan: Continue with blood pressure medication. Decrease salt intake and exercise presently on lisinopril hydrochlorothiazide. With the leg cramps question of hydrochlorothiazide effect. Changing blood pressure regimen to lisinopril and amlodipine. (4) Leg cramps: Code(s): R25.2 - Cramp and spasm Plan: Keep well hydrated blood work requested. Medications: New lisinopril 40 mg PO DAILY 30 tabs 3RF I10 - Essential (primary) hypertension amlodipine 5 mg PO DAILY 30 tabs 4RF I10 - Essential (primary) hypertension tizanidine 4 mg PO BEDTIME PRN 30 tabs 3RF muscle spasticity R25.2 - Cramp and spasm Discontinued lisinopril-hydrochlorothiazide 20-12.5 mg Discontinued Reason: No Longer Medically Relevant 1 tab PO BID 60 tabs 4RF I10 - Essential (primary) hypertension Coding Level of Care Code Est Pt Level 4 (55785) Diagnoses Impaired glucose tolerance R73.02 Elevated PSA R97.20 Essential hypertension I10 Hypertension type: essential hypertension Leg cramps R25.2
== END 2023-08-03 15:10 | disposition home or self-care (01) ==
PROVIDERS: PCP Internal Medicine; Visit Provider Internal Medicine
DX: R73.02 Impaired glucose tolerance (oral) (principal); R97.20 Elevated prostate specific antigen [PSA]; I10 Essential (primary) hypertension; R25.2 Cramp and spasm
CPT/HCPCS: 99214

== ENCOUNTER 2023-10-05 15:12 | Outpatient (AMB) | payer OTHER, SELFPAY ==
[2023-10-05 15:14] VITALS: BP 144/82; PULSE 85; O2SAT 95; BMI 25.5
--- NOTE | 2023-10-05 15:14 | A.OFFPC_ITS ---
Vital Signs 10/05/23 15:14 Height 5 ft 8 in Weight 168 lb 0.8 oz BMI 25.5 BP 144/82 H Blood Pressure Location Lt brachial Position Sitting Pulse 85 Pulse Source Pulse Oximeter Pulse Oximetry (%) 95 Oxygen Delivery Method Room Air Intake Visit Reasons: Leg cramps, hypertension Reducer Required: No Allergies tamsulosin Allergy (Verified 10/05/23 15:15) Rash hydrochlorothiazide Adverse Reaction (Intermediate, Verified 10/05/23 15:15) cramps Medication List - Last Reconciled 10/05/23 by Kandis Elaine MD amlodipine 10 mg PO DAILY bisacodyl (Dulcolax (bisacodyl)) 10 mg (2 x 5 mg) PO ONCE 1 day ibuprofen 200 mg PO Q6H PRN lisinopril 40 mg PO DAILY polyethylene glycol 3350 (Miralax) 17 grams PO DAILY polyethylene glycol 3350 (Miralax) 238 grams PO ONCE ropinirole 0.25 mg PO BEDTIME tizanidine 4 mg PO BEDTIME PRN Tobacco use date assessed: 10/05/23 Dental Screening Dental Screen Date: 08/03/23 Did you have a dental visit in the last 12 months?: Yes Did you have a dental problem in the last 6 months where you did not have access to dental care?: No Was dental information given to patient?: Patient has dentist HPI Leg cramps, hypertension HPI Details 58-year-old male(noted weight loss of mo re than 20 lb) with impaired glucose tolerance elevated PSA hypertension last seen in July 2023. Patient coming in for follow-up. cough for 1 month, no fever, no sob, Patient is going through a divorce right now and very anxious. With the cough prompted for consultation. [facility] Medical History Asthma Bleeding hemorrhoids Dyspnea on exertion Elevated cholesterol History of diverticulitis HTN (hypertension) Impaired glucose tolerance Nicotine dependence, cigarettes, uncomplicated Tubular adenoma of colon (~2019) Surgical History History of prostate biopsy History of colonoscopy History of inguinal hernia repair, bilateral Family History Father No problems noted. Mother History of high blood pressure Hx of diabetes mellitus Diabetes Child No Financial Resp Substance use disorder Maternal Grandfather Heart attack Maternal Grandmother Breast cancer in situ Social History (Updated 05/17/23 @ 12:03 by Kandis Elaine MD) Housing: House Are you a primary critical care nurse specialist to a significant other at home: No Do you presently have visiting nurse or other home services: No Alcohol intake: never Patient Tobacco Use Status: Current everyday Tobacco user Tobacco use type: Cigarette Cigarettes Per Day: 15 Years Smoked: 40+, 1/3 pack (04/2023) e-Cigarette/Vaping Use: Never Used Second Hand Smoke Exposure: No service: No Current occupational status: employed Cognitive needs: No Hearing needs: No Vision needs: No Questionnaire Thrive Questionnaire Date Thrive assessed: 08/03/23 I am a: Patient What is your living situation today?: I have a steady place to live Within the past 12 months, did the food you bought not last and you didn't have the money to get more?: Never true Within the past 12 months, did you worry whether your food would run out before you got money to buy more?: Never true Do you have trouble paying for medicines?: No Do you have trouble getting transportation to medical appointments?: No Do you have trouble paying your heating and electricity bill?: No Do you have trouble taking care of your child, family member or friend?: No Do you have trouble with day-to-day activities such as bathing, preparing meals, shopping, managing finances, etc.?: No Are you currently unemployed and looking for a job?: No Are you interested in more education?: No Please select the resources that you would like help with: None THRIVE Score: 0 AUDIT C Alcohol Use Questionnaire (AUDIT-C) 1. How often do you have a drink containing alcohol?: Never 2. How many drinks containing alcohol do you have on a typical day when you are drinking?: 1 or 2 3. How often do you have six or more drinks on one occasion?: Never Total Score: 0 Score Reviewed/Action Taken: No DELL-7 AMB Questionnaire DELL-7 Date DELL - 7 assessed: 10/05/23 Source: Developed by Drs. Brett Nixon, Lima Nichols, Rafael Burgess and colleagues, with an educational maryan from [employer]. Physical exam (Primary Care) Vital Signs: Last Vital Signs Pulse 85 10/05/23 15:14 BP 144/82 H 10/05/23 15:14 Pulse Ox 95 10/05/23 15:14 Oxygen Delivery Method Room Air 10/05/23 15:14 BMI result Body Mass Index 25.5 Tobacco/Smoking Status: Tobacco use Status Tobacco use date assessed 10/05/23 10/05/23 15:16 Patient Tobacco Use Status Current everyday Tobacco 10/05/23 15:16 Tobacco use type Cigarette 10/05/23 15:16 e-Cigarette/Vaping Use Never Used 10/05/23 15:16 Thrive Assessment: Date of Thrive Assessment Date Thrive assessed 08/03/23 10/05/23 15:16 Const General: alert; No acute distress Eyes Conjunctivae: conjunctivae normal Resp Auscultation: clear to auscultation bilaterally Cardio Rate: regular rate Rhythm: regular rhythm GI Inspection: Yes normal to inspection Extrem General: Yes normal to inspection and No edema Assessment and Plan Assessment & Plan (1) HTN (hypertension): Code(s): I10 - Essential (primary) hypertension Qualifiers: Hypertension type: essential hypertension Qualified Code(s): I10 - Essential (primary) hypertension Plan: Presently on amlodipine 5 mg once a day and lisinopril 40 mg once a day blood pressure continues to be elevated. Will increase amlodipine to 10 mg once a day (2) Leg cramps: Code(s): R25.2 - Cramp and spasm Plan: Discussed about hydration, electrolyte imbalance advised to get blood work (3) Asthma: Code(s): J45.909 - Unspecified asthma, uncomplicated Plan: Advised to start on ProAir. Strongly advised to stop smoking! Patient did say has tried multiple modalities with no resolution. (4) Nicotine dependence, cigarettes, uncomplicated: Comment: (current smoker, 1ppd x 42yrs, now 1/2ppd, 35pyh) CT scan July 2022 Code(s): F17.210 - Nicotine dependence, cigarettes, uncomplicated Plan: July [address] scan advised the need for this year. Referral to lung cancer screening again. (5) Elevated PSA: Code(s): R97.20 - Elevated prostate specific antigen [PSA] Plan: Patient is reminded about blood work (6) Tubular adenoma of colon: Onset Date: ~2019 Comment: (TAs on 2020 scope) Code(s): D12.6 - Benign neoplasm of colon, unspecified Plan: Patient was supposed to have another colonoscopy. Orders: Orders PSA,Total (Free>4and<10) Today R97.20 - Elevated prostate specific antigen [PSA] XR chest 2V Today R05.9 - Cough, unspecified Referrals Lung Cancer Screening Referral F17.210 - Nicotine dependence, cigarettes, uncomplicated Medications: New benzonatate 200 mg PO BID PRN 30 caps 0RF cough R05.9 - Cough, unspecified albuterol sulfate 90 mcg/actuation (Proventil HFA) 2 puffs inhalation Q4-6H PRN 8.5 grams 0RF Shortness Of Breath J45.909 - Unspecified asthma, uncomplicated, R05.9 - Cough, unspecified Changed From amlodipine 5 mg PO DAILY 30 tabs 4RF I10 - Essential (primary) hypertension To amlodipine 10 mg PO DAILY 30 tabs 4RF I10 - Essential (primary) hypertension Coding Level of Care Code Est Pt Level 4 (34711) Diagnoses Essential hypertension I10 Hypertension type: essential hypertension Leg cramps R25.2 Asthma J45.909 Nicotine dependence, cigarettes, uncomplicated F17.210 Elevated PSA R97.20 Tubular adenoma of colon D12.6
== END 2023-10-05 16:02 | disposition home or self-care (01) ==
PROVIDERS: PCP Internal Medicine; Visit Provider Internal Medicine
DX: I10 Essential (primary) hypertension (principal); R25.2 Cramp and spasm; J45.909 Unspecified asthma, uncomplicated; F17.210 Nicotine dependence, cigarettes, uncomplicated; R97.20 Elevated prostate specific antigen [PSA]; D12.6 Benign neoplasm of colon, unspecified
CPT/HCPCS: 99214

== ENCOUNTER 2024-12-01 15:17 | Outpatient (AMB) | payer OTHER, SELFPAY ==
[2024-12-01 15:24] VITALS: BP 136/68; PULSE 98; O2SAT 98; BMI 29.5
--- NOTE | 2024-12-01 15:24 | A.OFFPC_ITS ---
Vital Signs 12/01/24 15:24 Height 5 ft 8 in Weight 194 lb BMI 29.5 BP 136/68 Blood Pressure Location Lt brachial Position Sitting Pulse 98 Pulse Source Pulse Oximeter Pulse Oximetry (%) 98 Oxygen Delivery Method Room Air Intake Visit Reasons: OVERDUE ANNUAL PE - see comments Allergies tamsulosin Allergy (Verified 10/05/23 15:15) Rash hydrochlorothiazide Adverse Reaction (Intermediate, Verified 10/05/23 15:15) cramps Medication List - Last Reconciled 12/01/24 by Kandis Elaine MD ibuprofen 200 mg PO Q6H PRN lisinopril 40 mg PO DAILY ropinirole 0.25 mg PO BEDTIME Tobacco use date assessed: 10/05/23 Dental Screening Dental Screen Date: 08/03/23 FOR[facility], LAT[facility] Medical History (Updated 12/01/24 @ 16:18 by Kandis Elaine MD) Nicotine dependence, cigarettes, uncomplicated Dyspnea on exertion Impaired glucose tolerance Bleeding hemorrhoids History of diverticulitis Tubular adenoma of colon (~2019) Asthma Elevated cholesterol HTN (hypertension) Surgical History History of prostate biopsy History of colonoscopy History of inguinal hernia repair, bilateral Family History (Updated 12/01/24 @ 16:15 by Kandis Elaine MD) Father No problems noted. Mother History of high blood pressure Hx of diabetes mellitus Diabetes Child No Financial Resp Substance use disorder Maternal Grandfather Heart attack Maternal Grandmother Breast cancer in situ Daughter Breast cancer in situ Social History (Updated 12/01/24 @ 16:15 by Kandis Elaine MD) Housing: House Are you a primary reproductive healthcare assistant to a significant other at home: No Do you presently have visiting nurse or other home services: No Alcohol intake: never Patient Tobacco Use Status: Current everyday Tobacco user Tobacco use type: Cigarette Cigarettes Per Day: 15 Years Smoked: 40+, 1/3 pack (04/2023) quit 06/30/2024 e-Cigarette/Vaping Use: Never Used Second Hand Smoke Exposure: No service: No Current occupational status: employed Cognitive needs: No Hearing needs: No Vision needs: No Questionnaire PHQ-9 Over the last 2 weeks, how often have you been bothered by any of the following problems? 1. Little interest or pleasure in doing things: not at all 2. Feeling down, depressed, or hopeless: not at all 3. Trouble falling or staying asleep, or sleeping too much: several days 4. Feeling tired or having little energy: several days 5. Poor appetite or overeating: not at all 6. Feeling bad about yourself - or that you are a failure or have let yourself or your family down: not at all 7. Trouble concentrating on things, such as reading the newspaper or watching television: not at all 8. Moving or speaking so slowly that other people could have noticed. Or the opposite - being so fidgety or restless that you have been moving around a lot more than usual: not at all 9. Thoughts that you would be better off or of hurting yourself in some way: not at all Total score: 2 78157 - PHQ-9 Billing: Yes Source: Developed by Drs. Brett Nixon, Lima Nichols, Rafael Burgess and colleagues, with an educational maryan from [employer]. Thrive Questionnaire Date Thrive assessed: 12/01/24 I am a: Patient What is your living situation today?: I have a steady place to live Within the past 12 months, did the food you bought not last and you didn't have the money to get more?: Sometimes True Within the past 12 months, did you worry whether your food would run out before you got money to buy more?: Sometimes True Do you have trouble paying for medicines?: Yes Do you have trouble getting transportation to medical appointments?: No Do you have trouble paying your heating and electricity bill?: I choose not to answer this question Do you have trouble taking care of your child, family member or friend?: No Do you have trouble with day-to-day activities such as bathing, preparing meals, shopping, managing finances, etc.?: No Are you currently unemployed and looking for a job?: No Are you interested in more education?: No Please select the resources that you would like help with: None Currently or been in a relationship where the following occur: No concerns reported THRIVE Score: 2 AUDIT C Alcohol Use Questionnaire (AUDIT-C) 1. How often do you have a drink containing alcohol?: Never 3. How often do you have six or more drinks on one occasion?: Never Total Score: 0 DELL-7 AMB Questionnaire DELL-7 Date DELL - 7 assessed: 12/01/24 Feeling nervous, anxious, or on edge: 0 = Not at all Not being able to stop or control worryin = Not at all Worrying too much about different things: 1 = Several days Trouble relaxin = Not at all Being so restless that it is hard to sit still: 0 = Not at all Becoming easily annoyed or irritable: 0 = Not at all Feeling afraid as if something awful might happen: 0 = Not at all Total DELL-7 score (0-4 normal; 5-9 mild; 10-14 moderate; 15-21 severe): 1 Source: Developed by Drs. Brett Nixon, Lima Nihcols, Rafael Burgess and colleagues, with an educational maryan from [employer]. DELL-7 Assessment Billing DELL-7 Assessment Tool: DELL-7 Assessment 12465 Review of Systems Const Denies poor appetite and Denies weakness Eyes Denies no additional complaints ENT Reports Normal hearing present, Denies dizziness, Denies nasal congestion, Den ies tinnitus and Denies sore throat Card Denies chest pain, Denies syncope, Denies rapid heart rate and Denies dyspnea Resp Denies cough and Denies dyspnea GI Denies change in stool character, Reports constipation, Denies diarrhea, Denies nausea and Denies vomiting Denies dysuria and Denies urinary frequency Neuro Reports Normal hearing present, Denies confusion, Denies dizziness, Denies syncope and Denies weakness Psych Denies confusion Physical exam (Primary Care) Vital Signs: Last Vital Signs Pulse 98 12/01/24 15:24 BP 136/68 12/01/24 15:24 Pulse Ox 98 12/01/24 15:24 Oxygen Delivery Method Room Air 12/01/24 15:24 BMI result Body Mass Index 29.5 Tobacco/Smoking Status: Tobacco use Status Tobacco use date assessed 10/05/23 12/01/24 15:24 Patient Tobacco Use Status Current everyday Tobacco 12/01/24 16:15 Tobacco use type Cigarette 12/01/24 16:15 e-Cigarette/Vaping Use Never Used 12/01/24 16:15 PHQ-9: PHQ-9 Score PHQ-9: Total score 2 12/01/24 16:08 Thrive Assessment: Date of Thrive Assessment Date Thrive assessed 12/01/24 12/01/24 15:24 Currently or been in a relationship where the following occur: No concerns reported Const General: No confusion Orientation/consciousness: No confusion HENMT Head: Yes normocephalic Ears: external ears normal and TM's normal bilaterally Face and sinus: Yes normal facial exam Mouth: moist mucous membranes Throat: Yes tonsils normal Eyes Conjunctivae: conjunctivae normal Pupils: Equal, round and reactive pupils present and Pupil accommodation reflex normal Direct Ophthalmoscopy: normal light reflex Neck Neck: No lymphadenopathy Thyroid: Thyroid normal Chest Chest palpation & inspection: normal inspection of the chest Resp Effort & Inspection: normal respiratory effort and no audible wheezes Auscultation: clear to auscultation bilaterally, no crackles, no wheezes and lung sounds not diminished Cardio Rate: regular rate Rhythm: regular rhythm Peripheral pulses: radial pulses present and dorsalis pedis present GI Palpation (GI): no masses Auscultation: normal bowel sounds and normoactive bowel sounds Rectal Exam - Male: Yes deferred Skin General skin exam: no rashes or lesions noted Rashes: no rashes Neuro General: No confusion Cranial nerves: Yes Equal, round and reactive pupils present and Yes Normal hearing present Cognition (Neuro): normal cognition Gait exam (Neuro): Normal gait present Motor exam (neuro): 5/5 motor strength present throughout Deep tendon reflexes (DTR's): Right brachioradialis reflex intensity grade: 2+, Left brachioradialis reflex intensity grade: 2+, Right patellar reflex intensity grade: 2+ and Left patellar reflex intensity grade: 2+ Extrem General: No edema Coding Level of Care Code Est Pt Prev Care 40-64y(58007) Diagnoses Annual physical exam Z00.00 Nicotine dependence, cigarettes, uncomplicated F17.210 Asthma J45.909 Elevated PSA R97.20 Tubular adenoma of colon D12.6 Impaired glucose tolerance R73.02 Essential hypertension I10 Hypertension type: essential hypertension Frequency of urination R35.0 Additional Codes DELL-7 Assessment Billing - DELL-7 Assessment Tool: DELL-7 Assessment 01243 ([id number]) PHQ-9 - 07874 - PHQ-9 Billing: Yes ([id number]) Assessment & Plan Assessment & Plan (1) Annual physical exam: Code(s): Z00.00 - Encounter for general adult medical examination without abnormal findings Category: Medical Plan: Patient is advised to eat healthy, keep well hydrated, keep active and have adequate sleep. (2) Nicotine dependence, cigarettes, uncomplicated: Comment: (current smoker, 1ppd x 42yrs, now 1/2ppd, 35pyh) CT scan July 2022. Stopped 06/2024 Code(s): F17.210 - Nicotine dependence, cigarettes, uncomplicated Category: Medical Plan: Patient is strongly advised to stop smoking! Discussed about lung cancer screening program (3) Asthma: Code(s): J45.909 - Unspecified asthma, uncomplicated Category: Medical Plan: Patient is strongly advised to stop smoking. On albuterol as needed (4) Elevated PSA: Code(s): R97.20 - Elevated prostate specific antigen [PSA] Category: Medical Plan: Will need to retest (5) Tubular adenoma of colon: Onset Date: ~2019 Comment: (TAs on 2019 scope) Code(s): D12.6 - Benign neoplasm of colon, unspecified Category: Medical Plan: Reminded about colonoscopy (6) Impaired glucose tolerance: Code(s): R73.02 - Impaired glucose tolerance (oral) Category: Medical Plan: Decrease the amount of carbohydrate intake, pasta, bread, rice and potatoes are all sugar and that is aside from all the sweet stuff, remember that fruits are good but they are Sweet also. (7) HTN (hypertension): Code(s): I10 - Essential (primary) hypertension Category: Medical Qualifiers: Hypertension type: essential hypertension Qualified Code(s): I10 - Essential (primary) hypertension Plan: Continue with blood pressure medication. Decrease salt intake and exercise on lisinopril 40 mg once a day amlodipine 10 mg once a day (8) Frequency of urination: Code(s): R35.0 - Frequency of micturition Category: Medical Plan History of Present Illness The patient is a 59-year-old male presenting for a physical exam and management of chronic conditions including hypertension and asthma. He has a history of hy pertension, currently managed with lisinopril 40 mg once daily and amlodipine 10 mg once daily, although his blood pressure is noted to be low. The patient also has asthma, for which he uses an albuterol inhaler as needed, although he was advised not to use it anymore. The patient reports a significant weight gain of 25 pounds since quitting smoking on June 30. He experiences muscle pain and spasms, particularly in his legs and arms, which have worsened over time. He has been using ibuprofen for pain management, ensuring to take it with food. The patient has a history of restless legs syndrome, managed with ropinirole. He also reports dyspnea, particularly when bending over or putting on shoes, and experiences shortness of breath while at rest. The patient has a history of prostate issues, including a biopsy and an inguinal hernia repair. He denies any new surgeries since his last visit. 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 Review of Systems - General: Reports weight gain of 25 pounds - Respiratory: Reports dyspnea at rest and when bending over - Musculoskeletal: Reports muscle pain and spasms in legs and arms - Neurological: Reports restless legs syndrome - Cardiovascular: Denies chest pain, dizziness, or syncope - Gastrointestinal: Denies nausea, vomiting, or heartburn - Genitourinary: Reports difficulty with urination, denies nocturia Physical Exam General: Cooperative, overweight, healthy appearing, comfortable, no acute distress and well developed Orientation: Patient oriented x3 Limitations: No limitations Head: Normal to inspection Ears: Hearing grossly normal bilaterally Nose: Normal external nose present Face and sinus: Normal facial exam Eyes: Appearance normal, both eyes and all related structures Neck: Normal visual inspection and Yes full ROM Respiratory: Normal respiratory effort, able to speak in complete sentences, but reports waking up short of breath and gasping for breath at times. Clear to auscultation bilaterally Cardiovascular: Regular rate and rhythm. Normal S1 and S2 GI: Normal to inspection. Soft to palpation and nontender Skin: No rashes or lesions noted Neuro: Patient oriented x3 Extremities: Normal to inspection, but reports pain and spasms in legs, arms, and side, especially when walking, going upstairs, or bending over. Results - Labs: Last blood work in 2021 showed normal blood count - Tests: Stress test conducted in 2019 Plan The patient was advised to stop smoking to reduce the risk of lung cancer, and the lung cancer screening protocol was discussed. A colonoscopy was recommended as part of preventative care. Blood work was ordered to monitor fasting glucose levels and follow up on prostate health. The patient was reminded to continue taking lisinopril and amlodipine for hypertension management, despite the current low blood pressure readings. For asthma management, the patient was advised to refrain from using the albuterol inhaler unless necessary. Muscle pain and spasms were addressed with the recommendation to continue ibuprofen as needed, ensuring it is taken with food. Patient was informed and verbally consented to the use of an ambient scribe for clinic note documentation during this visit. Discussion Notes During the visit, I discussed the importance of smoking cessation with the patie nt, emphasizing the reduction in lung cancer risk. We reviewed the lung cancer screening protocol and the need for a colonoscopy as part of his preventative care. I ordered blood work to monitor his fasting glucose and prostate health, and we discussed the continuation of his current hypertension and asthma medications. Patient Instructions - Stop smoking to reduce lung cancer risk. - Schedule and complete a colonoscopy. - Continue taking lisinopril and amlodipine as prescribed. - Use albuterol inhaler only if necessary. - Take ibuprofen with food for muscle pain. Orders: Orders Complete Blood Count Auto Diff Today I10 - Essential (primary) hypertension Free T4 (Free Thyroxine) Today I10 - Essential (primary) hypertension Thyroid Stimulating Hormone Today I10 - Essential (primary) hypertension Vitamin B12 and Folate Today I10 - Essential (primary) hypertension Lipid Panel Today E78.00 - Pure hypercholesterolemia, unspecified, I10 - Essential (primary) hypertension Hemoglobin A1c Today I10 - Essential (primary) hypertension US bladder Today R35.0 - Frequency of micturition Creatine Kinase Total Today R25.2 - Cramp and spasm AMB Hemoglobin A1c Today R73.09 - Other abnormal glucose Comprehensive Met. Panel Today I10 - Essential (primary) hypertension Prostate Specific Antigen Scr Today I10 - Essential (primary) hypertension Magnesium Today I10 - Essential (primary) hypertension UA CC w/rflx Micro + Cult Today I10 - Essential (primary) hypertension, R30.0 - Dysuria B Type Natriuretic Peptide Today R06.09 - Other forms of dyspnea Medications: New cyclobenzaprine 5 mg PO BEDTIME PRN 30 tabs 3RF muscle spasm R25.2 - Cramp and spasm magnesium 250 mg PO DAILY 30 tabs 2RF R06.09 - Other forms of dyspnea
== END 2024-12-01 16:31 | disposition home or self-care (01) ==
LOC: HO.HMCH 15:17
PROVIDERS: PCP Internal Medicine; Visit Provider Internal Medicine
DX: Z00.00 Encounter for general adult medical examination without abnormal findings (principal); F17.210 Nicotine dependence, cigarettes, uncomplicated; J45.909 Unspecified asthma, uncomplicated; R97.20 Elevated prostate specific antigen [PSA]; D12.6 Benign neoplasm of colon, unspecified; R73.02 Impaired glucose tolerance (oral); I10 Essential (primary) hypertension; R35.0 Frequency of micturition

== ENCOUNTER → 2024-12-01 15:17 | Outpatient (BNVA) | payer OTHER, SELFPAY | PROVIDERS: PCP Internal Medicine; Visit Provider Internal Medicine | DX: Z00.00 Encounter for general adult medical examination without abnormal findings (principal); J45.909 Unspecified asthma, uncomplicated; R97.20 Elevated prostate specific antigen [PSA]; R73.02 Impaired glucose tolerance (oral); I10 Essential (primary) hypertension; R35.0 Frequency of micturition; F17.210 Nicotine dependence, cigarettes, uncomplicated; Z79.899 Other long term (current) drug therapy; Z86.0101 Personal history of adenomatous and serrated colon polyps | CPT/HCPCS: 96127 ==

== ENCOUNTER 2024-12-08 16:58 | Outpatient (REF) | payer OTHER, SELFPAY ==
[2024-12-08 17:16] LABS: MANUAL DIFF FLAG NO
[2024-12-08 17:34] LABS: Hemoglobin A1C 246.9747 umol/L; Total Hemoglobin (HGBA1C) 3619.5460 umol/L
[2024-12-08 17:36] LABS: Hematocrit 41.0 % (42.0-52.0); Hemoglobin 14.1 g/dl (14.0-18.0); Imm Gran Abs Auto 0.05 X10*3/uL (0.00-0.03); Imm Gran Pct Auto 0.5 % (0.0-0.4); Lymphocytes Absolute Auto 3.0 X10*3/uL (1.2-4.9); Mean Corpuscular HGB Conc 34.4 g/dl (31.0-36.0); Mean Corpuscular Hemoglobin 30.3 pg (27.0-33.0); Mean Corpuscular Volume 88.2 fL (80.0-98.0); NRBC Abs Auto 0.000 X10*3/uL (0.0-0.012); NRBC Pct Auto 0.0 /100WBC (0.0-0.2); Platelet Count 203 X10*3/uL (160-400); Red Blood Count 4.65 X10*6/uL (4.60-5.80); White Blood Count 9.6 X10*3/uL (4.8-10.8)
[2024-12-08 17:38] LABS: B Type Natriuretic Peptide < 10 pg/mL (<100)
[2024-12-08 17:43] LABS: Alanine Aminotransferase 37 U/L (0-40); Albumin Level 4.9 g/dL (3.5-5.0); Alkaline Phosphatase 66 U/L (39-117); Anion Gap 16 (12-20); Aspartate Amino Transferase 34 U/L (5-37); Blood Urea Nitrogen 16 mg/dL (9-16); Calcium 9.7 mg/dL (8.4-10.2); Carbon Dioxide 24 mmol/L (22-29); Chloride 107 mmol/L (96-108); Cholesterol 214 mg/dL (<200); Estimated Glomerular Filt Rate > 60; HDL Cholesterol 39 mg/dL (>40); Magnesium 2.2 mg/dL (1.6-2.6); Potassium 4.3 mmol/L (3.3-5.1); Sodium 143 mmol/L (135-145); Total Protein 8.1 g/dL (6.5-8.0); Triglycerides 165 mg/dL (<150)
[2024-12-08 17:56] LABS: Free T4 (Free Thyroxine) 0.88 ng/dL (0.71-1.85); Thyroid Stimulating Hormone 0.63 uIU/mL (0.32-4.0)
[2024-12-08 18:08] LABS: Folate 11.3 ng/mL (> or = 4.0); Vitamin B12 594 pg/mL (200-900)
== END 2024-12-08 16:59 | disposition home or self-care (01) ==
LOC: HO.LAB 16:58
PROVIDERS: PCP Internal Medicine; Visit Provider Internal Medicine
DX: R06.09 Other forms of dyspnea (principal); I10 Essential (primary) hypertension; R25.2 Cramp and spasm; E78.00 Pure hypercholesterolemia, unspecified; Z13.1 Encounter for screening for diabetes mellitus; Z12.5 Encounter for screening for malignant neoplasm of prostate
CPT/HCPCS: 36415; 80053; 80061; 82550; 82607; 82746; 83036; 83735; 83880; 84153; 84439; 84443; 85025

== ENCOUNTER 2024-12-16 15:36 | Outpatient (AMB) | payer OTHER, SELFPAY ==
[2024-12-16 15:39] VITALS: BP 146/74; PULSE 96; RESP 18; TEMP 36.2; O2SAT 95; BMI 29.3
--- NOTE | 2024-12-16 15:39 | MHC.PC.OV ---
Vital Signs 12/16/24 15:39 Height 5 ft 8 in Weight 192 lb 8 oz BMI 29.3 BP 146/74 H Blood Pressure Location Lt brachial Position Sitting Respiration 18 Pulse 96 Pulse Source Pulse Oximeter Temp 97.1 F Temp Source Temporal Artery Scan Pulse Oximetry (%) 95 Oxygen Delivery Method Room Air Intake Visit Reasons: Onset DM, Lab results Allergies tamsulosin Allergy (Verified 12/16/24 15:41) Rash hydrochlorothiazide Adverse Reaction (Intermediate, Verified 12/16/24 15:41) cramps Tobacco use date assessed: 12/16/24 Dental Screening Dental Screen Date: 12/16/24 Did you have a dental visit in the last 12 months?: No Did you have a dental problem in the last 6 months where you did not have access to dental care?: No Was dental information given to patient?: No [facility] Medical History (Updated 12/16/24 @ 16:20 by Kandis Elaine MD) Impaired glucose tolerance Nicotine dependence, cigarettes, uncomplicated Dyspnea on exertion Bleeding hemorrhoids History of diverticulitis Tubular adenoma of colon (~2019) Asthma Elevated cholesterol HTN (hypertension) Surgical History History of prostate biopsy History of colonoscopy History of inguinal hernia repair, bilateral Family History Father No problems noted. Mother History of high blood pressure Hx of diabetes mellitus Diabetes Child No Financial Resp Substance use disorder Maternal Grandfather Heart attack Maternal Grandmother Breast cancer in situ Daughter Breast cancer in situ Social History Housing: House Are you a primary resident care manager to a significant other at home: No Do you presently have visiting nurse or other home services: No Alcohol intake: never Patient Tobacco Use Status: Former Tobacco user Tobacco use type: Cigarette Cigarettes Per Day: 15 Years Smoked: 40+, 1/3 pack (04/2023) quit 06/30/2024 Packs per year/per ci.00 e-Cigarette/Vaping Use: Never Used Second Hand Smoke Exposure: No service: No Current occupational status: employed Cognitive needs: No Hearing needs: No Vision needs: No Questionnaire PHQ-9 Over the last 2 weeks, how often have you been bothered by any of the following problems? 1. Little interest or pleasure in doing things: not at all 2. Feeling down, depressed, or hopeless: not at all 3. Trouble falling or staying asleep, or sleeping too much: several days 4. Feeling tired or having little energy: several days 5. Poor appetite or overeating: not at all 6. Feeling bad about yourself - or that you are a failure or have let yourself or your family down: not at all 7. Trouble concentrating on things, such as reading the newspaper or watching television: not at all 8. Moving or speaking so slowly that other people could have noticed. Or the opposite - being so fidgety or restless that you have been moving around a lot more than usual: not at all 9. Thoughts that you would be better off or of hurting yourself in some way: not at all Total score: 2 Source: Developed by Drs. Brett Nixon, Lima Nichols, Rafael Burgess and colleagues, with an educational maryan from [employer]. Thrive Questionnaire Date Thrive assessed: 11/27/24 I am a: Patient What is your living situation today?: I have a steady place to live Within the past 12 months, did the food you bought not last and you didn't have the money to get more?: Never true Within the past 12 months, did you worry whether your food would run out before you got money to buy more?: Never true Do you have trouble paying for medicines?: No Do you have trouble getting transportation to medical appointments?: No Do you have trouble paying your heating and electricity bill?: I choose not to answer this question Do you have trouble taking care of your child, family member or friend?: No Do you have trouble with day-to-day activities such as bathing, preparing meals, shopping, managing finances, etc.?: No Are you currently unemployed and looking for a job?: No Are you interested in more education?: No Please select the resources that you would like help with: None Currently or been in a relationship where the following occur: No concerns reported THRIVE Score: 0 AUDIT C Alcohol Use Questionnaire (AUDIT-C) 1. How often do you have a drink containing alcohol?: Never 3. How often do you have six or more drinks on one occasion?: Never Total Score: 0 DELL-7 AMB Questionnaire DELL-7 Date DELL - 7 assessed: 12/01/24 Feeling nervous, anxious, or on edge: 0 = Not at all Not being able to stop or control worryin = Not at all Worrying too much about different things: 1 = Several days Trouble relaxin = Not at all Being so restless that it is hard to sit still: 0 = Not at all Becoming easily annoyed or irritable: 0 = Not at all Feeling afraid as if something awful might happen: 0 = Not at all Total DELL-7 score (0-4 normal; 5-9 mild; 10-14 moderate; 15-21 severe): 1 Source: Developed by Drs. Brett Nixon, Lima Nichols, Rafael Burgess and colleagues, with an educational maryan from [employer]. Physical exam (Primary Care) Vital Signs: Last Vital Signs Temp 97.1 F 12/16/24 15:39 Pulse 96 12/16/24 15:39 Resp 18 12/16/24 15:39 BP 146/74 H 12/16/24 15:39 Pulse Ox 95 12/16/24 15:39 Oxygen Delivery Method Room Air 12/16/24 15:39 BMI result Body Mass Index 29.3 Tobacco/Smoking Status: Tobacco use Status Tobacco use date assessed 12/16/24 12/16/24 15:44 Patient Tobacco Use Status Former Tobacco user 12/16/24 15:44 Tobacco use type Cigarette 12/16/24 15:44 e-Cigarette/Vaping Use Never Used 12/16/24 15:44 PHQ-9: PHQ-9 Score PHQ-9: Total score 2 12/16/24 15:44 Thrive Assessment: Date of Thrive Assessment Date Thrive assessed 11/27/24 12/16/24 15:44 Currently or been in a relationship where the following occur: No concerns reported Const General: alert; No acute distress Eyes Conjunctivae: conjunctivae normal Resp Auscultation: clear to auscultation bilaterally Cardio Rate: regular rate Rhythm: regular rhythm GI Inspection: Yes normal to inspection Extrem General: Yes normal to inspection and No edema Coding Level of Care Code Est Pt Level 4 (61887) Complex EM visit Add On G2211 Diagnoses Type 2 diabetes mellitus with hyperglycemia E11.65 Essential hypertension I10 Hypertension type: essential hypertension Hypercholesterolemia E78.00 Nicotine dependence, cigarettes, uncomplicated F17.210 Overweight (BMI 25.0-29.9) E66.3 Assessment & Plan Assessment & Plan (1) Type 2 diabetes mellitus with hyperglycemia: Code(s): E11.65 - Type 2 diabetes mellitus with hyperglycemia Category: Medical Plan: Decrease the amount of carbohydrate intake, pasta, bread, rice and potatoes are all sugar and that is aside from all the sweet stuff, remember that fruits are good but they are Sweet also. Hemoglobin A1c goal of less than 6.5. (2) HTN (hypertension): Code(s): I10 - Essential (primary) hypertension Category: Medical Qualifiers: Hypertension type: essential hypertension Qualified Code(s): I10 - Essential (primary) hypertension Plan: Continue with blood pressure medication. Decrease salt intake and exercise patient on lisinopril 40 mg once a day (3) Hypercholesterolemia: Code(s): E78.00 - Pure hypercholesterolemia, unspecified Category: Medical Plan: Avoid fried foods, chicken skin, eggs, butter margarine, pastries and meat. Be it pork or beef they have a lot of cholesterol LDL goal of less than 100 and triglyceride of less than 150 (4) Nicotine dependence, cigarettes, uncomplicated: Comment: (current smoker, 1ppd x 42yrs, now 1/2ppd, 35pyh) CT scan July 2022. Stopped 06/2024 Code(s): F17.210 - Nicotine dependence, cigarettes, uncomplicated Category: Medical Plan: Patient is strongly advised to stop smoking! (5) Overweight (BMI 25.0-29.9): Code(s): E66.3 - Overweight Category: Medical Plan: Diet and exercise Plan History of Present Illness The patient is a 59-year-old male presenting with management of diabetes mellitus, hypercholesterolemia, and hypertension. He has a history of tubular adenoma, with the last colonoscopy performed in February 2020, and is scheduled for a follow-up with gastroenterology in January 2025. The patient has impaired glucose tolerance and was diagnosed with diabetes mellitus, with a hemoglobin A1c of 8.4%. His fasting blood sugar was noted to be 123 mg/dL, and he has been advised to aim for a hemoglobin A1c goal of less than 6.5%. He reports a family history of diabetes and has been experiencing muscle cramps, likely due to dehydration from high blood sugar levels. The patient has a history of hypertension and is currently on lisinopril 40 mg once daily, with advice to maintain his blood pressure within normal limits. He is managing hypercholesterolemia, with an LDL cholesterol level of 142 mg/dL, and has been advised to aim for an LDL cholesterol goal of less than 100 mg/dL. He has been started on a low-dose cholesterol medication to help achieve this target. The patient is overweight and has been counseled on dietary modifications, including reducing carbohydrate intake and increasing consumption of green leafy vegetables. He has also been advised to exercise regularly, although he reports difficulty due to muscle pain. The patient has a history of smoking but reports cessation since June 2024. 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, but currently limited due to muscle pain - Nutrition: Advised to consume a diet rich in green leafy vegetables and low in carbohydrates Review of Systems - Endocrine: Reports impaired glucose tolerance, elevated hemoglobin A1c - Musculoskeletal: Reports muscle cramps - Respiratory: Reports history of asthma - Cardiovascular: Reports hypertension Physical Exam Results - Labs: Normal blood count, no anemia, normal electrolytes, creatinine 1.0 mg/dL, fasting blood sugar 123 mg/dL, hemoglobin A1c 8.4%, LDL cholesterol 142 mg/dL Plan The patient is advised to manage diabetes mellitus by targeting a hemoglobin A1c of less than 6.5% through dietary changes and increased physical activity. For hypertension, continuation of lisinopril 40 mg daily is recommended, with a focus on maintaining normal blood pressure levels. To address hypercholesterolemia, a low-dose cholesterol medication has been initiated, aiming for an LDL cholesterol level below 100 mg/dL. The patient is encouraged to maintain smoking cessation and ensure adequate hydration to mitigate dehydration risks associated with high blood sugar. A follow-up in three months will include reassessment of blood sugar and cholesterol levels. Patient was informed and verbally consented to the use of an ambient scribe for clinic note documentation during this visit. Discussion Notes During the visit, I discussed the importance of managing diabetes mellitus by aiming for a hemoglobin A1c goal of less than 6.5% through dietary modifications and regular exercise. We reviewed the patient's current hypertension management with lisinopril and the need to maintain blood pressure within normal limits. For hypercholesterolemia, I initiated a low-dose cholesterol medication and set a target LDL cholesterol level of less than 100 mg/dL. I emphasized the importance of smoking cessation and adequate hydration to prevent dehydration from high blood sugar levels. A follow-up appointment in three months was scheduled to reassess blood sugar and cholesterol levels. Patient Instructions - Aim for a hemoglobin A1c goal of less than 6.5% by following dietary changes and increasing physical activity. - Continue taking lisinopril 40 mg daily to manage blood pressure. - Take the prescribed low-dose cholesterol medication to lower LDL cholesterol levels. - Maintain smoking cessation and ensure adequate hydration. - Return for a follow-up appointment in three months for reassessment of blood sugar and cholesterol levels. Orders: Orders Lipid Panel 3 Months E78.00 - Pure hypercholesterolemia, unspecified Comprehensive Met. Panel 3 Months E78.00 - Pure hypercholesterolemia, unspecified Hemoglobin A1c 3 Months E78.00 - Pure hypercholesterolemia, unspecified Microalbumin, Random (w Creat) 3 Months E11.65 - Type 2 diabetes mellitus with hyperglycemia, E78.00 - Pure hypercholesterolemia, unspecified Creatinine Urine 3 Months E11.65 - Type 2 diabetes mellitus with hyperglycemia, E78.00 - Pure hypercholesterolemia, unspecified UA CC w/rflx Micro + Cult 3 Months E78.00 - Pure hypercholesterolemia, unspecified, R30.0 - Dysuria Medications: New atorvastatin (Lipitor) 10 mg PO DAILY 30 tabs 4RF E78.00 - Pure hypercholesterolemia, unspecified
== END 2024-12-16 16:38 | disposition home or self-care (01) ==
LOC: HO.HMCH 15:37
PROVIDERS: PCP Internal Medicine; Visit Provider Internal Medicine
DX: E11.65 Type 2 diabetes mellitus with hyperglycemia (principal); I10 Essential (primary) hypertension; E78.00 Pure hypercholesterolemia, unspecified; F17.210 Nicotine dependence, cigarettes, uncomplicated; E66.3 Overweight

== ENCOUNTER 2025-01-21 14:33 | Outpatient (REF) | payer OTHER, SELFPAY ==
--- NOTE | ~2025-01-21 | US_ITS ---
EXAMINATION: US PELVIS LIMITED (BLADDER) CLINICAL INFORMATION: Increased frequency of micturition. COMPARISON: None available. TECHNIQUE: Real-time imaging of the bladder. FINDINGS: BLADDER: Well distended and normal. Bilateral ureteral jets are demonstrated. Prevoid bladder volume is 391 mL. Postvoid bladder volume is 181 mL. Prostate is enlarged with a volume of 60.7 mL US/US bladder IMPRESSION: Large post void residual bladder volume measuring 46.3%. Electronically signed by: Stanislav Luevano MD 01/21/2025 03:15 PM EDT RP
== END 2025-01-21 14:34 | disposition home or self-care (01) ==
LOC: HO.US 14:33
PROVIDERS: PCP Internal Medicine; Visit Provider Internal Medicine
DX: R35.0 Frequency of micturition (principal)
CPT/HCPCS: 76857

== ENCOUNTER → 2025-01-21 14:36 | Outpatient (BNV) | payer OTHER, SELFPAY | PROVIDERS: PCP Internal Medicine; Visit Provider Radiology Diagnostic Radiology | DX: R35.0 Frequency of micturition (principal) | CPT/HCPCS: 76857 ==

== ENCOUNTER 2025-03-06 15:52 | Outpatient (REF) | payer OTHER, SELFPAY ==
--- NOTE | ~2025-03-06 | XR_ITS ---
EXAMINATION: XR KNEE, LEFT CLINICAL INFORMATION: M25.562 - Pain in left knee COMPARISON: None available. TECHNIQUE: Four views of the left knee. FINDINGS: No visible acute fracture or dislocation. No significant effusion. Alignment is anatomic. Joint spaces are maintained . Superior patellar insertional enthesopathy. Chronic appearing linear calcification/ossification adjacent to the proximal fibula. XR/XR knee LT 2V IMPRESSION: No radiographic evidence of acute osseous findings. Electronically signed by: Luis Vera MD 03/09/2025 08:11 AM EDT
== END 2025-03-06 15:53 | disposition home or self-care (01) ==
LOC: HO.XRAY 15:52
PROVIDERS: PCP Internal Medicine; Visit Provider Internal Medicine
DX: M25.562 Pain in left knee (principal)
CPT/HCPCS: 73560

== ENCOUNTER → 2025-03-06 15:55 | Outpatient (BNV) | payer OTHER, SELFPAY | PROVIDERS: PCP Internal Medicine; Visit Provider Radiology Diagnostic Ultrasound | DX: M25.562 Pain in left knee (principal) | CPT/HCPCS: 73560 ==

== ENCOUNTER 2025-03-18 15:21 | Outpatient (AMB) | payer OTHER, SELFPAY ==
--- NOTE | 2025-03-18 15:51 | MHC.OFFVIS ---
Intake Visit Reasons: incomplete bladder emptying/ enlarged prostate Intake Note: Patient is present for INCOMPLETE BLADDER EMPTYING/ENLARGED PROSTATE Urology Medication:NONE Antibiotic Allergy:NONE Blood Thinner:NONE TODAY'S PVR:70ML'S Extermination Inspector Required: No Allergies tamsulosin Allergy (Verified 03/23/25 16:51) Rash hydrochlorothiazide Adverse Reaction (Intermediate, Verified 03/23/25 16:51) cramps HPI Comments Details: Garrison is a pleasant male. He is a patient of Dr. Elaine. He is seen for the following urologic issues. - prostatitis - lower urinary tract symptoms Eight month follow-up. PSA 4.8. HbA1c 8.4 in setting of diabetes Would check testosterone at next lab visit Currently not on any medication Prior prostate biopsy - chronic inflammation with no evidence of prostate cancer Nocturia x2 Urinating every 2 hours during the day Recent diabetes diagnosis Stressed diabetes control will significantly improve urination Given terazosin 5 mg Three-month follow-up Lower urinary tract symptoms Partial response with alfuzosin Side effects with finasteride, terazosin and tamsulosin PSA 01/07 4.1, 04/11 5.5 9%, 6.6 Prostate Biopsy 06/12 - chronic confirmation Prostatitis Prior colonoscopy which appeared to trigger significant pelvic symptoms November 2020 Primarily with frequency and urge Pelvic discomfort On initial exam has boggy prostate consistent with prostatitis Had side effects with finasteride Treatment with combination therapy successful COUNT INCLUDES THE [facility] Medical History Hyperkalemia Impaired glucose tolerance Nicotine dependence, cigarettes, uncomplicated Dyspnea on exertion Bleeding hemorrhoids History of diverticulitis Tubular adenoma of colon (~2019) Asthma Elevated cholesterol HTN (hypertension) Surgical History History of prostate biopsy History of colonoscopy History of inguinal hernia repair, bilateral Family History Father No problems noted. Mother History of high blood pressure Hx of diabetes mellitus Diabetes Child No Financial Resp Substance use disorder Maternal Grandfather Heart attack Maternal Grandmother Breast cancer in situ Daughter Breast cancer in situ Social History Housing: House Are you a primary home care giver to a significant other at home: No Do you presently have visiting nurse or other home services: No Alcohol intake: never Patient Tobacco Use Status: Former Tobacco user Tobacco use type: Cigarette Cigarettes Per Day: 15 Years Smoked: 40+, 1/3 pack (04/2023) quit 06/30/2024 e-Cigarette/Vaping Use: Never Used Second Hand Smoke Exposure: No service: No Current occupational status: employed Cognitive needs: No Hearing needs: No Vision needs: No Review of Systems Const Denies chills and Denies fever(s) Card Reports no additional complaints and Denies syncope Resp Denies cough GI Denies abdominal pain and Denies heartburn Reports as per HPI and Denies change in libido Neuro Denies syncope Psych Denies change in libido Endo Denies change in libido Physical Exam Const General: cooperative, healthy appearing, comfortable and no acute distress Orientation/consciousness: patient oriented x3 HEENT Face and sinus: Yes normal facial exam Mouth: moist mucous membranes Neck Neck: Yes normal visual inspection, Yes full ROM and Yes trachea midline Chest Chest palpation & inspection: normal inspection of the chest Resp Effort & Inspection: normal respiratory effort, able to speak in complete sentences and no respiratory distress GI Inspection: Yes normal to inspection Back/Spine/Pelvis Cervical Spine: normal cervical lordosis Thoracic/Lumbar Spine: thoracic and lumbar spine normal to inspection Skin General skin exam: no rashes or lesions noted Neuro General: patient oriented x3, gait normal, tone normal and moves all extremities Extrem General: Yes normal to inspection and Yes capillary refill normal Office Procedures Post Void Residual Post Residual Void Post Void Residual (PVR): 70 [id number] Void Residual by ultrasound Assessment & Plan Assessment & Plan (1) Prostatitis: Comment: May 2022transrectal ultrasound-guided prostate biopsy Dr. Boo-NORMAL Code(s): N41.9 - Inflammatory disease of prostate, unspecified Category: Medical (2) Elevated PSA: Code(s): R97.20 - Elevated prostate specific antigen [PSA] Category: Medical Plan Retry terazosin Medications: New terazosin 5 mg PO BEDTIME 30 caps 1RF 30 days N32.0 - Bladder-neck obstruction Patient Instructions: This note is constructed using voice recognition software. While every effort has been made to ensure accuracy glass cutter helper errors may have been included. Imaging studies, laboratory and physical exam results were discussed and reviewed in detail. No major barriers to patient understanding were identified. An opportunity to ask questions regarding the treatment plan was provided. All questions were answered. The patient expressed understanding and agreement with the above treatment plan. The patient is aware they should contact our office by phone for worsening of their current condition or the appearance of new urologic symptoms. Compliance is encouraged with any medications and followup testing that is ordered. It is a privilege to participate in the urologic care of your patient. If you have any questions or concerns regarding treatment for the above conditions, or other urologic issues, please do not hesitate to contact me. The office telephone contact is [phone]. Sincerely, Dr Wellington Boo MD, [facility] - Urology Compassionate Specialist Care for the Genitourinary System Coding Level of Care Code Est Pt Level 3 (00786) Add On Problem Visit Only Diagnoses Prostatitis N41.9 Elevated PSA R97.20 CPT Codes Post Residual Void - PVR CPT Code: 70197-Gawx Void Residual by ultrasound ([id number])
== END 2025-03-18 16:26 | disposition home or self-care (01) ==
LOC: HO.HUSH 15:22
PROVIDERS: PCP Internal Medicine; Visit Provider Urology
DX: N41.9 Inflammatory disease of prostate, unspecified (principal); R97.20 Elevated prostate specific antigen [PSA]
CPT/HCPCS: 99213; G2211

== ENCOUNTER → 2025-03-18 15:21 | Outpatient (BNVA) | payer OTHER, SELFPAY | PROVIDERS: PCP Internal Medicine; Visit Provider Urology | DX: N41.9 Inflammatory disease of prostate, unspecified (principal); R97.20 Elevated prostate specific antigen [PSA]; N32.0 Bladder-neck obstruction | CPT/HCPCS: 51798 ==

== ENCOUNTER 2025-03-23 07:13 | Outpatient (REF) | payer OTHER, SELFPAY ==
[2025-03-23 08:18] LABS: Alanine Aminotransferase 37 U/L (0-40); Albumin Level 4.8 g/dL (3.5-5.0); Alkaline Phosphatase 76 U/L (39-117); Anion Gap 11 (12-20); Aspartate Amino Transferase 24 U/L (5-37); Blood Urea Nitrogen 16 mg/dL (9-16); Calcium 9.7 mg/dL (8.4-10.2); Carbon Dioxide 29 mmol/L (22-29); Chloride 106 mmol/L (96-108); Cholesterol 157 mg/dL (<200); Estimated Glomerular Filt Rate > 60; HDL Cholesterol 43 mg/dL (>40); Potassium 5.8 mmol/L (3.3-5.1); Sodium 140 mmol/L (135-145); Total Protein 8.1 g/dL (6.5-8.0); Triglycerides 91 mg/dL (<150)
== END 2025-03-23 07:14 | disposition home or self-care (01) ==
LOC: HO.LAB 07:13
PROVIDERS: PCP Internal Medicine; Visit Provider Internal Medicine
DX: E11.65 Type 2 diabetes mellitus with hyperglycemia (principal); I10 Essential (primary) hypertension; E78.00 Pure hypercholesterolemia, unspecified; D12.6 Benign neoplasm of colon, unspecified; E87.5 Hyperkalemia; N32.0 Bladder-neck obstruction; N41.9 Inflammatory disease of prostate, unspecified; J45.909 Unspecified asthma, uncomplicated; M25.562 Pain in left knee
CPT/HCPCS: 36415; 80053; 80061; 83036; 96127

== ENCOUNTER 2025-03-23 16:45 | Outpatient (AMB) | payer OTHER, SELFPAY ==
[2025-03-23 16:49] VITALS: BP 134/80; PULSE 95; TEMP 36.3; O2SAT 96; BMI 29.5
--- NOTE | 2025-03-23 16:49 | MHC.PC.OV ---
Vital Signs 03/23/25 16:49 Height 5 ft 8 in Weight 194 lb BMI 29.5 BP 134/80 Blood Pressure Location Lt brachial Position Sitting Pulse 95 Pulse Source Pulse Oximeter Temp 97.3 F Temp Source Temporal Artery Scan Pulse Oximetry (%) 96 Oxygen Delivery Method Room Air Intake Visit Reasons: sob on exertion Allergies tamsulosin Allergy (Verified 03/23/25 16:51) Rash hydrochlorothiazide Adverse Reaction (Intermediate, Verified 03/23/25 16:51) cramps Medication List - Last Reconciled 03/23/25 by Kandis Elaine MD atorvastatin (Lipitor) 10 mg PO DAILY cyclobenzaprine 5 mg PO BEDTIME PRN ibuprofen 200 mg PO Q6H PRN lisinopril 40 mg PO DAILY magnesium 250 mg PO DAILY metformin 500 mg PO BIDWMEAL terazosin 5 mg PO BEDTIME 30 days Tobacco use date assessed: 03/23/25 Dental Screening Dental Screen Date: 03/23/25 Did you have a dental visit in the last 12 months?: No Did you have a dental problem in the last 6 months where you did not have access to dental care?: No Was dental information given to patient?: No [facility] Medical History Hyperkalemia Impaired glucose tolerance Nicotine dependence, cigarettes, uncomplicated Dyspnea on exertion Bleeding hemorrhoids History of diverticulitis Tubular adenoma of colon (~2019) Asthma Elevated cholesterol HTN (hypertension) Surgical History History of prostate biopsy History of colonoscopy History of inguinal hernia repair, bilateral Family History Father No problems noted. Mother History of high blood pressure Hx of diabetes mellitus Diabetes Child No Financial Resp Substance use disorder Maternal Grandfather Heart attack Maternal Grandmother Breast cancer in situ Daughter Breast cancer in situ Social History Housing: House Are you a primary careers adviser to a significant other at home: No Do you presently have visiting nurse or other home services: No Alcohol intake: never Patient Tobacco Use Status: Former Tobacco user Tobacco use type: Cigarette Cigarettes Per Day: 15 Years Smoked: 40+, 1/3 pack (04/2023) quit 06/30/2024 e-Cigarette/Vaping Use: Never Used Second Hand Smoke Exposure: No service: No Current occupational status: employed Cognitive needs: No Hearing needs: No Vision needs: No Questionnaire PHQ-9 Over the last 2 weeks, how often have you been bothered by any of the following problems? 1. Little interest or pleasure in doing things: not at all 2. Feeling down, depressed, or hopeless: not at all 3. Trouble falling or staying asleep, or sleeping too much: several days 4. Feeling tired or having little energy: several days 5. Poor appetite or overeating: not at all 6. Feeling bad about yourself - or that you are a failure or have let yourself or your family down: not at all 7. Trouble concentrating on things, such as reading the newspaper or watching television: not at all 8. Moving or speaking so slowly that other people could have noticed. Or the opposite - being so fidgety or restless that you have been moving around a lot more than usual: not at all 9. Thoughts that you would be better off or of hurting yourself in some way: not at all Total score: 2 Source: Developed by Drs. Brett Nixon, Lima Nichols, Rafael Burgess and colleagues, with an educational maryan from [employer]. Thrive Questionnaire Date Thrive assessed: 11/27/24 I am a: Patient What is your living situation today?: I have a steady place to live Within the past 12 months, did the food you bought not last and you didn't have the money to get more?: Sometimes True Within the past 12 months, did you worry whether your food would run out before you got money to buy more?: Sometimes True Do you have trouble paying for medicines?: Yes Do you have trouble getting transportation to medical appointments?: No Do you have trouble paying your heating and electricity bill?: I choose not to answer this question Do you have trouble taking care of your child, family member or friend?: No Do you have trouble with day-to-day activities such as bathing, preparing meals, shopping, managing finances, etc.?: No Are you currently unemployed and looking for a job?: No Are you interested in more education?: No Please select the resources that you would like help with: None Currently or been in a relationship where the following occur: No concerns reported THRIVE Score: 2 AUDIT C Alcohol Use Questionnaire (AUDIT-C) 1. How often do you have a drink containing alcohol?: Never 3. How often do you have six or more drinks on one occasion?: Never Total Score: 0 DELL-7 AMB Questionnaire DELL-7 Date DELL - 7 assessed: 12/01/24 Feeling nervous, anxious, or on edge: 0 = Not at all Not being able to stop or control worryin = Not at all Worrying too much about different things: 1 = Several days Trouble relaxin = Not at all Being so restless that it is hard to sit still: 0 = Not at all Becoming easily annoyed or irritable: 0 = Not at all Feeling afraid as if something awful might happen: 0 = Not at all Total DELL-7 score (0-4 normal; 5-9 mild; 10-14 moderate; 15-21 severe): 1 Source: Developed by Drs. Brett Nixon, Lima Nichols, Rafael Burgess and colleagues, with an educational maryan from [employer]. Physical exam (Primary Care) Vital Signs: Last Vital Signs Temp 97.3 F 03/23/25 16:49 Pulse 95 03/23/25 16:49 BP 134/80 03/23/25 16:49 Pulse Ox 96 03/23/25 16:49 Oxygen Delivery Method Room Air 03/23/25 16:49 BMI result Body Mass Index 29.5 Tobacco/Smoking Status: Tobacco use Status Tobacco use date assessed 03/23/25 03/23/25 16:52 Patient Tobacco Use Status Former Tobacco user 03/23/25 16:52 Tobacco use type Cigarette 03/23/25 16:52 e-Cigarette/Vaping Use Never Used 03/23/25 16:52 PHQ-9: PHQ-9 Score PHQ-9: Total score 2 03/23/25 16:52 Thrive Assessment: Date of Thrive Assessment Date Thrive assessed 11/27/24 03/23/25 16:52 Currently or been in a relationship where the following occur: No concerns reported Const General: alert; No acute distress Eyes Conjunctivae: conjunctivae normal Resp Auscultation: clear to auscultation bilaterally Cardio Rate: regular rate Rhythm: regular rhythm GI Inspection: Yes normal to inspection Extrem General: Yes normal to inspection and No edema Coding Level of Care Code Est Pt Level 4 (52839) Complex EM visit Add On G2211 Diagnoses Type 2 diabetes mellitus with hyperglycemia E11.65 Essential hypertension I10 Hypertension type: essential hypertension Hypercholesterolemia E78.00 Tubular adenoma of colon D12.6 Hyperkalemia E87.5 Bladder outlet obstruction N32.0 Prostatitis N41.9 Asthma J45.909 Left knee pain M25.562 Assessment & Plan Assessment & Plan (1) Type 2 diabetes mellitus with hyperglycemia: Code(s): E11.65 - Type 2 diabetes mellitus with hyperglycemia Category: Medical Plan: Decrease the amount of carbohydrate intake, pasta, bread, rice and potatoes are all sugar and that is aside from all the sweet stuff, remember that fruits are good but they are Sweet also. Hemoglobin A1c A1c goal of less than 6.5. Patient is not on any medication (2) HTN (hypertension): Code(s): I10 - Essential (primary) hypertension Category: Medical Qualifiers: Hypertension type: essential hypertension Qualified Code(s): I10 - Essential (primary) hypertension Plan: Continue with blood pressure medication. Decrease salt intake and exercise on lisinopril 40 mg once a day (3) Hypercholesterolemia: Code(s): E78.00 - Pure hypercholesterolemia, unspecified Category: Medical Plan: Avoid fried foods, chicken skin, eggs, butter margarine, pastries and meat. Be it pork or beef they have a lot of cholesterol LDL goal of less than 100 and triglyceride of less than 150 on atorvastatin 10 mg once a day (4) Tubular adenoma of colon: Onset Date: ~2019 Comment: (TAs on 2020 scope) Code(s): D12.6 - Benign neoplasm of colon, unspecified Category: Medical Plan: reminded about colonoscopy patient's last colonoscopy was in 2020 (5) Hyperkalemia: Code(s): E87.5 - Hyperkalemia Category: Medical Plan: Discussed concerns about hyperkalemia advised to hold off from any electrolyte fluids and gave wanting to foods that are high in potassium like bananas, avocados, spinach and potatoes (6) Bladder outlet obstruction: Code(s): N32.0 - Bladder-neck obstruction Category: Medical Plan: Patient was seen by Urology and treated for prostatitis with terazosin (7) Prostatitis: Comment: May 2022transrectal ultrasound-guided prostate biopsy Dr. Boo-NORMAL Code(s): N41.9 - Inflammatory disease of prostate, unspecified Category: Medical Plan: Follow-up with urology and treated with terazosin (8) Asthma: Code(s): J45.909 - Unspecified asthma, uncomplicated Category: Medical Plan: Stable (9) Left knee pain: Code(s): M25.562 - Pain in left knee Category: Medical Plan: X-rays was done in the knee showing negative results. With the continues pain Patient was referred to orthopedics but this is still going to be in May. Patient does have a swollen knee with no redness but we will try to get him a sooner schedule with orthopedics. Plan History of Present Illness The patient is a 59-year-old male presenting for management of his chronic medical conditions. He has a history of hypertension, hypercholesterolemia, diabetes mellitus, asthma, and is a former smoker who stopped in June. Regarding his diabetes, recent bloodwork from March 23 showed a glucose of 223 mg/dL and a hemoglobin A1c of 8.2%. He is not currently on any medication for diabetes. For hypercholesterolemia, he is on atorvastatin, and recent labs show significant improvement with an LDL of 96 mg/dL and triglycerides of 91 mg/dL. His hypertension is managed with lisinopril 40 mg daily. The patient has a history of colonic tubular adenoma, with his last colonoscopy noted as being in 2021 and also mentioned as 2019. He has a history of bladder outflow obstruction and prostatitis and was seen by urology on March 18. An ultrasound showed incomplete bladder emptying, and he continues to experience nocturia, urinating every two hours at night. He was prescribed terazosin by the urologist. The patient reports suffering from severe left knee pain since a fall while playing soccer in late December or early January. He describes the pain as terrible, with associated swelling, stiffness, and difficulty bearing weight, but denies instability. An X-ray of the knee showed negative findings. Recent lab work also revealed hyperkalemia, with a potassium level of 4.8-5.3. Health Maintenance - Colonoscopy: The patient was reminded about the need for a follow-up colonoscopy; his last procedure was noted to be in 2019 and also in 2021. - Dietary counseling: Advised to avoid foods high in potassium, such as bananas, avocados, spinach, and potatoes, and to avoid electrolyte drinks. - Smoking cessation: Patient is a former smoker, having quit in June. Social History - Tobacco Use: Patient is a former smoker, having stopped in June. 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 - Nutrition: The patient reports eating more salads and avoiding steak for the past two months. - Substance Use: He drinks Gatorade, which may contain sugar and potassium. Review of Systems - Musculoskeletal: Reports severe, terrible pain, swelling, and stiffness in the left knee, with difficulty bearing weight. - Genitourinary: Reports nocturia, urinating every two hours at night, and a sensation of incomplete bladder emptying. Physical Exam Results - Bloodwork (March 23): Potassium 4.8 mEq/L (also mentioned as 5.3), blood sugar 223 mg/dL, HbA1c 8.2%. - Renal function: Stable. - Bloodwork (December 08): Normal blood count, no anemia. - Cholesterol Panel: Total cholesterol 157 mg/dL (previously 214), LDL 96 mg/dL (previously 142), Triglycerides 91 mg/dL (previously 165). - Imaging: Left knee x-ray showed negative findings. - Urology: Ultrasound demonstrated incomplete bladder emptying, retaining about half of his urine. Plan Patient was informed and verbally consented to the use of an ambient scribe for clinic note documentation during this visit. 1. Diabetes Mellitus The patient's hemoglobin A1c is elevated at 8.2% with a random glucose of 223 mg/dL, and his target is less than 6.5%. He is not currently on any medication. After discussion, the patient agreed to start medication to help lower his blood sugar. A prescription for metformin to be taken twice daily with food will be sent to [facility]. Follow-up will be in three months to re-evaluate his blood sugar control. 2. Hyperkalemia Recent lab work showed an elevated potassium level of 4.8-5.3. The patient was counseled to avoid foods high in potassium, such as bananas, avocados, spinach, and potatoes. He was also advised to avoid electrolyte-containing fluids like Gatorade and to drink plain water. A repeat blood test for electrolytes will be performed in one week to monitor the level. 3. Hypercholesterolemia The patient's cholesterol has improved significantly on atorvastatin 10 mg, with his LDL meeting the goal of less than 100 and triglycerides below 150. He will continue taking atorvastatin 10 mg once daily. 4. Essential Hypertension Blood pressure is well-controlled on lisinopril 40 mg once a day. He will continue his current medication regimen. 5. Arthralgia Of The Left Knee The patient has persistent severe left knee pain since a fall, with negative x-ray findings. His current specialist appointment is not until the end of May, which is too long given his level of pain. 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 He is currently using Advil for pain management. 6. Prostatitis With Lower Urinary Tract Symptoms The patient was seen by urology for prostatitis and incomplete bladder emptying. He was prescribed terazosin, which he is picking up today. He will follow up with urology as directed. It was noted that elevated blood sugar can also contribute to urinary frequency. Discussion Notes I reviewed the patient's recent lab results with him, noting the significant improvement in his cholesterol panel, which I attributed to the atorvastatin and his dietary changes. I expressed concern about his elevated potassium level of 5.3 and his uncontrolled diabetes, with an A1c of 8.2. We discussed management for the hyperkalemia, and I advised him to avoid specific high-potassium foods and electrolyte drinks, and to increase plain water intake. I ordered a repeat electrolyte panel in one week. Regarding his diabetes, I discussed the need to start medication due to the high A1c. The patient agreed to try a pill, and I informed him I would be prescribing metformin twice daily. We also discussed his persistent and severe left knee pain. I acknowledged that his May specialist appointment is too far out and informed him that my special forces medical sergeant will call to try and get an earlier date. I reviewed his urological issues, noting that the new medication from his urologist, terazosin, along with better blood sugar control, may help his symptoms of nocturia and incomplete emptying. I set a follow-up for three months to review his diabetes management, but will contact him sooner with the results of his potassium blood test. Patient Instructions - Start taking Metformin for your diabetes. - Take one pill in the morning and one at night, with food. - Continue taking your lisinopril 40 mg once daily for blood pressure. - Continue taking atorvastatin 10 mg once daily for your cholesterol. 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 - You have an order for a blood test in one week to recheck your potassium. - You do not need to fast for this test. - Avoid foods high in potassium, such as bananas, potatoes, avocados, and spinach, to help lower your potassium levels. - Avoid sports drinks with electrolytes, like Gatorade. - Drink plain water instead. - Our office will call the specialist's office to try and get you a sooner appointment for your knee pain. - Follow up in the clinic in three months to check on your blood sugar. Medications: New metformin 500 mg PO BIDWMEAL 60 tabs 4RF E11.65 - Type 2 diabetes mellitus with hyperglycemia
== END 2025-03-23 17:26 | disposition home or self-care (01) ==
LOC: HO.HMCH 16:46
PROVIDERS: PCP Internal Medicine; Visit Provider Internal Medicine
DX: E11.65 Type 2 diabetes mellitus with hyperglycemia (principal); I10 Essential (primary) hypertension; E78.00 Pure hypercholesterolemia, unspecified; D12.6 Benign neoplasm of colon, unspecified; E87.5 Hyperkalemia; N32.0 Bladder-neck obstruction; N41.9 Inflammatory disease of prostate, unspecified; J45.909 Unspecified asthma, uncomplicated; M25.562 Pain in left knee